=== PATIENT | female | born 1985 | race Caucasian/White ===

== ENCOUNTER → 2016-03-12 | Outpatient (CLI) | payer BC ==
[~2016-03-12] MED LIST: ACET-1256 PO; AMOX875T PO; DICL-201 PO; DIPH25CA65 PO; FEXO1TAB49 PO; FLUT0.15 NAE; GABA-113 PO; IBUP-103 PO; MECL1TAB42 PO; MGRIN; PRENTAB26 PO; SERT50TA PO; VENL1CAP92 PO
--- NOTE | 2016-03-12 12:17 | DIAGNOSTIC IMAGING REPORT ---
CERVICAL SPINE 5 VIEWS HISTORY: Pain. Neuropathy. CERVICALGIA, CERVICOGENIC JORDAN COMPARISON: None. FINDINGS: The cervical spine is visualized from C1 through the superior endplate of T1. There is no fracture. No subluxation. Disc spaces are preserved. Prevertebral soft tissues and the atlantodens interval are intact. IMPRESSION: No fracture or subluxation within the cervical spine. Electronically signed by: Marco A Fernandez M.D. 03/12/2016 12:15 PM
== END | disposition home or self-care (01) ==
LOC: C.RADBC 11:23
PROVIDERS: ATTEND Anesthesiology
DX: M54.2 Cervicalgia (principal); R51 Headache

== ENCOUNTER → 2017-04-08 | Day surgery (SDC) | payer OTHER ==
[2017-03-22 15:02] VITALS: Ht 162.6 cm; Wt 79.5 kg
--- NOTE | 2017-04-07 12:21 | History and Physical: Surg Cnt ---
History & Physical Date Apr 07, 2017. Chief Complaint sinus infections History of Present Illness The patient is a 32 year old female with complaints of recurrent acute sinusitis , headaches Additional History Hepatic Disease: No Endocrine Disorder: No Kidney Disease: No Hypertension: No Heart Disease: No Bleeding Tendencies: No Infectious Diseases: No Allergies Coded Allergies: Oxycodone (Verified Allergy, Unknown, Hives and disorientation, 04/06/17) Clavulanic Acid (Verified Adverse Reaction, Severe, rectal bleeding, ) Uncoded Allergies: CANTELOUPE (Allergy, Severe, ANAPHYLAXIS, 08/01/14) HONEYDEW (Allergy, Severe, ANAPHYLAXIS, 08/01/14) Home Medications Scheduled Cholecalciferol (Vitamin D3), 1 TAB PO QAM Cyanocobalamin (Vitamin B12), 1 TAB PO QAM Gabapentin (Neurontin), 300 MG PO QPM Multivit/Min/Iron/Fol Ac/Pren ( Vitamin), 1 TAB PO QAM Sertraline (Zoloft), 50 MG PO QAM Scheduled PRN Acetaminophen (Tylenol), 1,000 MG PO QD PRN for Headache Diphenhydramine Hcl (Benadryl Allergy), 1 CAP PO DIRECTED PRN for ALLERGIC REACTION Ibuprofen Tab (Advil), 200-600 MG PO DIRECTED PRN for Pain Meclizine Hcl (Meclizine Hcl), 1 TAB PO TID PRN for VERTIGO Physical Examination Skin: warm/dry, no rash Eyes: normal inspection, EOMI, sclerae normal ENT: normal ENT inspection, pharynx normal Head: normocephalic, atraumatic Neck: supple, no adenopathy, trachea midline Respiratory/Chest: lungs clear, normal breath sounds, no respiratory distress Cardiovascular: regular rate, rhythm, no edema, no murmur Abdomen / GI: normal bowel sounds, non tender Back: normal inspection Extremities: normal inspection, normal range of motion Neurologic/Psych: no motor/sensory deficits, alert, normal reflexes, oriented x 3 Diagnosis recurrent acute sinusitis Plan of Treatment endoscopic sinus surgery
[~2017-04-08] VITALS: Ht 162.6 cm; Wt 79.5 kg
[~2017-04-08] MED LIST changes: -AMOX875T PO; +ATROPINE SULFATE 0.1 MG/ML 5ML SYR IV PRN; +CEFAZOLIN 1000MG IV PUSH 5 ML IV SCH; +CHOL1TAB46 PO; +CYAN100020 PO; +DEXAMETHASONE SOD INJ 4 MG/ML VIAL ONE; -DICL-201 PO; +EpINEphrine INJ 1MG/ML AMP 1 MG/ML AMP ONE; +FENTANYL CITRATE INJ 50 MCG/1 ML 2 ML VIAL IV PRN; +FENTANYL CITRATE INJ 50 MCG/1 ML 2 ML VIAL ONE; -FEXO1TAB49 PO; -FLUT0.15 NAE; -GABA-113 PO; +IBUPROFEN 600 MG TAB PO PRN; +KETOROLAC TROMETHAMINE 30 MG/ML VIAL IV. PRN; +LABETALOL HCL IV 5 MG/ML 20ML IV PRN; +LACTATED RINGER'S 1000ML 1,000 ML IV SCH; +LIDO 2%/EPINEPHRINE 1:100000 20 ML VIAL INFIL ONE; +LIDOCAINE 4% MPF SOAK 5 ML = 1 DOSE TOP ONE; +LIDOCAINE HCL 2% 2 ML VIAL (20MG/ML) ONE; -MGRIN; +MIDAZOLAM HCL 1 MG/ML 2ML VIAL ONE; +NRN/300 PO; +ONDANSETRON INJ 2 MG/ML 2 ML VIAL IV PRN; +ONDANSETRON INJ 2 MG/ML 2 ML VIAL ONE; +PROPOFOL IV EMULSION 10 MG/ML 20 ML VIAL IV ONE; +SODIUM CHLORIDE 0.9% 1000ML 1,000 ML IV SCH; +TRAM-10 PO; -VENL1CAP92 PO
--- NOTE | 2017-04-08 07:56 | History & Physical Bridge Note ---
H&P Re-Evaluation Bridge Note: I have examined the patient, reviewed the History & Physical and in the interval since the performance of the History & Physical I have noted the following changes of clinical significance: No changes noted
--- NOTE | 2017-04-08 12:05 | Discharge Instructions-SurgCtr ---
Discharge Instructions Date of Service Apr 08, 2017. Visit Reason for Visit: Rec Acute Sinusitis Discharge Discharge Diagnosis / Problem: same Discharge Goals Goal(s): Improve disease control Medications Stopped Medications Name(s): Has not taken Advil or B12 in past couple days. Has been more than 2 days since last taking. Activity Recommendations Activity Limitations: resume your previous activity Anesthesia . Post Anesthesia Instructions: If you have had General Anesthesia or IV Sedation: * Do not drive today. * Resume driving when surgeon permits. * Do not make important decisions or sign legal documents today. * Call surgeon for: 1. Temperature elevations greater than 101 degrees F. 2. Uncontrollable pain. 3. Excessive bleeding. 4. Persistent nausea and vomiting. 5. Medication intolerance (nausea, vomiting or rash). * For nausea and vomiting use only clear liquids such as: tea, soda, bouillon until nausea subsides, then gradually increase diet as tolerated. * If you have any concerns or questions, call your surgeon's office. If physician is unavailable and it is an emergency, call 911 or go to the nearest emergency room. . Instructions / Follow-Up Instructions / Follow-Up ACTIVITY RECOMMENDATIONS: * Being up and around is good, but no strenuous activity, heavy lifting or physical exertion for one week. * Keep your head elevated 30 degrees when lying down or sleeping. * Do not blow your nose for 48 hours, sniff back instead. * Avoid hot showers. OVER THE COUNTER MEDICATIONS: * You may use Tylenol * Avoid aspirin or aspirin containing products, e.g. as they may increase bleeding. SPECIAL CARE INSTRUCTIONS: * Expect to have bloody drainage from your nose and/or down your throat for one to three days. Change drip pad as needed. * Begin irrigating your nose with saline solution today, at least six to ten times per day and sniff back to help remove old clots or crust. * You may experience nasal and facial congestion, pain and pressure, this is normal. * Please call with any significant and/or progressive pain, redness, swelling around the eyes, visual changes, fever of 101.5 degrees F, active bleeding or any problems or concerns. * If active bleeding occurs, spray the nose three times at one minute intervals with Afrin spray and call or cell phone: . If unable to reach the doctor, go to the nearest Emergency Department. Special Diet: * Avoid extremely hot fluids. FOLLOW UP VISIT: Follow-up Visit with Dr. Torres If not already scheduled, please call to schedule. Diet Recommendations Home Diet: no limitations Pending Studies Studies pending at discharge: no Medical Emergencies . Who to Call and When: Medical Emergencies: If at any time you feel your situation is an emergency, please call 911 immediately. . Non-Emergent Contact Non-Emergency issues call your: Primary Care Provider . . "Provider Documentation" section prepared by Terra Torres. . [place] Drug Monitoring Program Search Results: no issues identified
--- NOTE | 2017-04-08 13:02 | [facility] Post Operative Brief Note ---
Immediate Operative Summary Operative Date Apr 08, 2017. Pre-Operative Diagnosis Recurrent acute sinusitis Post-Operative Diagnosis same Procedure(s) Performed Endoscopic Sinus Surgery With Brain Lab Navigation, right and left frontal sinus, maxillary and total ethmoidectomies Surgeon Dr. Torres Shellfish Checker Surgeon(s) none Estimated Blood Loss 20ml Findings Consistent with Post-Op Diagnosis Specimens none Drains None Anesthesia Type General Complication(s) none Disposition Accompanied Pt To Recovery: yes Disposition: Recovery Room / PACU
--- NOTE | 2017-04-08 13:13 | [facility] Operative Report ---
Operative Report Operative Date Apr 08, 2017. Pre-Operative Diagnosis Recurrent acute sinusitis Post-Operative Diagnosis same Procedure(s) Performed Endoscopic Sinus Surgery With Brain Lab Navigation, right and left frontal sinus, maxillary and total ethmoidectomies Surgeon Dr. Torres Neuroscience Director Na Surgeon(s) none Estimated Blood Loss 20ml Findings adhesions blocking the nasal frontal duct Specimens none Drains None Anesthesia Type General Complication(s) none Disposition yes Recovery Room / PACU Indications 32-year-old lady with recurrent recurrent acute sinusitis with significant headaches with adhesions blocking the sinuses for redo of her sinus surgery from 2015 Description of Procedure The patient was brought to the operating room placed supine position and general anesthesia was induced using LMA. [employer] device was calibrated and used for the entire procedure. She was prepped and draped in the usual sterile manner. The left maxillary sinus was cannulated with the guidewire and dilated using the 6 mm balloon as was the right maxillary sinus. The left nasal frontal duct was cannulated with the guidewire with [employer]Lab computer guidance and dilated using the 6 mm balloon. The guidewire was left in place as a marker for frontal sinusotomy. The shaver was couple with the Brain[facility] device and used to remove the adhesions from the middle turbinate to the lateral wall and the residual anterior and posterior wall of the Agger nasi cell. Widely opening up the nasal frontal duct which was located laterally. Adhesions covering the maxillary ostia and blocking the ethmoids were also removed using the shaver. Attention was turned to the right side were frontal sinusotomy total ethmoidectomy maxillary sinus antrostomy was performed similar manner again removing the adhesions from the middle turbinate laterally and again removing the residual Agger nasi cell and decidual supra-ethmoid or air cells and removing the adhesions blocking the maxillary ostia and the ethmoids. A contours stent was placed in the right nasal frontal duct and to regular propel stents were placed in the middle meatus area. The patient her procedure well was taken recovery area in satisfactory condition. I attest to the content of the Intraoperative Record and any orders documented therein. Any exceptions are noted below.
--- NOTE | 2017-04-08 13:23 | Anesthesia Progress Nt - [facility] ---
Anesthesia Post Op Note Date & Time Apr 08, 2017 at 13:23 Vital Signs Pain Intensity: 0 Vital Signs Past 12 Hours Date Time Temp Pulse Resp B/P (MAP) Pulse Ox O2 Delivery O2 Flow Rate FiO2 04/08/17 13:04 36.6 88 16 130/64 96 Mask 6 04/08/17 10:22 37.1 83 16 106/71 (83) 97 Room Air Notes Mental Status: alert / awake / arousable, participated in evaluation Pt Amnestic to Procedure: Yes Nausea / Vomiting: adequately controlled Pain: adequately controlled Airway Patency, RR, SpO2: stable & adequate BP & HR: stable & adequate Hydration State: stable & adequate Anesthetic Complications: no major complications apparent
[2017-04-08 14:17] VITALS: BP 116/76; PULSE 78; O2SAT 98
== END | disposition home or self-care (01) ==
LOC: X.SURG 10:07
PROVIDERS: ATTEND Otolaryngology
DX: J01.90 Acute sinusitis, unspecified (principal); Z79.899 Other long term (current) drug therapy

== ENCOUNTER 2018-10-15 16:34 | Observation (INO) ==
[~2018-10-15 16:34] MED LIST changes: -ACET-1256 PO; -ATROPINE SULFATE 0.1 MG/ML 5ML SYR IV PRN; -CEFAZOLIN 1000MG IV PUSH 5 ML IV SCH; -CHOL1TAB46 PO; -CYAN100020 PO; -DEXAMETHASONE SOD INJ 4 MG/ML VIAL ONE; -DIPH25CA65 PO; -EpINEphrine INJ 1MG/ML AMP 1 MG/ML AMP ONE; -FENTANYL CITRATE INJ 50 MCG/1 ML 2 ML VIAL IV PRN; -FENTANYL CITRATE INJ 50 MCG/1 ML 2 ML VIAL ONE; -IBUP-103 PO; -IBUPROFEN 600 MG TAB PO PRN; -KETOROLAC TROMETHAMINE 30 MG/ML VIAL IV. PRN; -LABETALOL HCL IV 5 MG/ML 20ML IV PRN; +LACTATED RINGER'S 1,000 ML IV SCH; -LACTATED RINGER'S 1000ML 1,000 ML IV SCH; -LIDO 2%/EPINEPHRINE 1:100000 20 ML VIAL INFIL ONE; -LIDOCAINE 4% MPF SOAK 5 ML = 1 DOSE TOP ONE; -LIDOCAINE HCL 2% 2 ML VIAL (20MG/ML) ONE; -MECL1TAB42 PO; -MIDAZOLAM HCL 1 MG/ML 2ML VIAL ONE; -NRN/300 PO; -ONDANSETRON INJ 2 MG/ML 2 ML VIAL IV PRN; -ONDANSETRON INJ 2 MG/ML 2 ML VIAL ONE; -PRENTAB26 PO; -PROPOFOL IV EMULSION 10 MG/ML 20 ML VIAL IV ONE; -SERT50TA PO; -SODIUM CHLORIDE 0.9% 1000ML 1,000 ML IV SCH; -TRAM-10 PO
[2018-10-15] MEDS ORDERED: SODIUM CHLORIDE 0.9% 1000ML 2,000 ML IV ONE (16:53)
[2018-10-15 17:30] LABS: Basophils # (auto) 0.02 K/uL (0-0.2); Basophils % (auto) 0.2 %; Eosinophils # (auto) 0.01 K/uL (0-0.5); Eosinophils % (auto) 0.1 %; Hematocrit (blood only) 33.7 % (37-47); Hemoglobin 11.7 g/dL (12.0-16.0); Immature Granulocytes # (auto) 0.03 K/uL (0.00-0.02); Immature Granulocytes % (auto) 0.3 %; Lymphocytes # (auto) 1.26 K/uL (1.2-3.4); Lymphocytes % (auto) 10.5 %; Mean Corpuscular Hgb Conc 34.7 g/dL (32-36); Mean Corpuscular Volume 89.9 fL (80-100); Mean Platelet Volume 8.7 fL (7.4-10.4); Monocytes # (auto) 1.01 K/uL (0.11-0.59); Monocytes % (auto) 8.4 %; Neutrophils # (auto) 9.65 K/uL (1.4-6.5); Neutrophils % (auto) 80.5 %; Platelet Count 236 K/uL (130-400); RDW Coefficient of Variation 14.2 % (11.5-14.5); RDW Standard Deviation 46.8 fL (36.4-46.3); Red Blood Count 3.75 M/uL (4.2-5.4); White Blood Count 11.98 K/uL (4.8-10.8)
--- NOTE | 2018-10-15 17:31 | XRay Report ---
SINGLE VIEW CHEST CLINICAL HISTORY: Sepsis. FINDINGS: An AP, portable, upright chest radiograph is compared to study dated 05/15/2015. The examinat ion is degraded by portable technique and patient rotation. The cardiomediastinal silhouette is unr emarkable. There is mild bibasilar atelectasis. The lungs and pleural spaces are otherwise clear. No pneumothorax is seen. The bony thorax is grossly intact. IMPRESSION: No active disease in the chest. Electronically signed by: Yovany Antony M.D. 10/15/2018 5:29 PM
[2018-10-15 17:41] LABS: Partial Thromboplastin Ratio 0.9; Partial Thromboplastin Time 25.1 Seconds (21.0-31.0); Prothrombin Time 10.5 Seconds (9.0-12.0)
[2018-10-15 17:51] LABS: Albumin Globulin Ratio 1.2 (0.9-2); Albumin Level 3.9 gm/dl (3.4-5.0); Bilirubin,Total 1.6 mg/dl (0.2-1); Calcium 8.5 mg/dl (8.5-10.1); Creatinine Clr Calc Pharmacy 124.4 ml/min; Est GFR (African American) 133.3; Globulin 3.2 gm/dl (2.5-4.0); Potassium 3.6 mmol/L (3.5-5.1); Total Protein 7.1 gm/dl (6.4-8.2)
[2018-10-15] MEDS ORDERED: KETOROLAC TROMETHAMINE 15 MG/ML VIAL IV ONE (18:03)
--- NOTE | 2018-10-15 18:41 | Ultrasound Report ---
ULTRASOUND OF THE PELVIS CLINICAL HISTORY: Right pelvic pain. COMPARISON STUDY: Pelvic ultrasound dated 10/14/2018. Pelvic CT dated 10/15/2018. TECHNIQUE: Real-time, grayscale, and color flow sonography of the pelvis is performed both transabdom inally and endovaginally. Images are reviewed in the transverse and longitudinal planes. FINDINGS: Uterus: The uterus is normal in size and echotexture, measuring 9.3 x 3.5 x 5.1 cm. Nabothian cysts a re seen in the cervix. Endometrium: The endometrium is normal in appearance, and the endometrial stripe is normal in thickne ss measuring up to 0.6 cm. Ovaries: There is unchanged appearance of the right ovary from yesterday. The right ovary measures 5. 4 x 4.1 x 5.2 cm. A homogeneously hyperechoic lesion within the right ovary measures 4.5 cm. No inter nal flow shown within this lesion on color imaging. The left ovary measures 3.3 x 2.1 x 2.7 cm. Small follicles are noted in the left ovary. Normal Doppler waveforms are shown within both ovaries. Pelvis: There is a small volume of free fluid in the cul-de-sac. No concerning adnexal lesion is seen . IMPRESSION: 1. There is unchanged appearance of the right ovary as compared to yesterday. 2. A 4.5 cm homogeneously hyperechoic lesion within the right ovary shows no internal flow on color i maging. When correlated with yesterday's CT scan, the top differential considerations include a hemor rhagic cyst versus endometrioma. Follow-up ultrasound in 2-3 menstrual cycles is recommended to docum ent resolution. 3. A small volume of free fluid is again seen in the cul-de-sac. Electronically signed by: Yovany Antony M.D. 10/15/2018 6:40 PM
[2018-10-15 18:55] LABS: Pregnancy Test, Urine Negative (Negative)
[2018-10-15 18:58] LABS: Appearance Urine Clear (Clear); Bilirubin Urine Negative (Negative); Blood Urine 3+ (Negative); Color Urine Yellow; Glucose Urine UA Negative (Negative); Ketones Urine Negative (Negative); Leukocyte Esterase Urine Negative (Negative); Nitrite Urine Negative (Negative); Protein Urine Negative (Negative); Specific Gravity Urine 1.005 (1.000-1.030); Urobilinogen Urine Negative (Negative); pH Urine 6.5 (4.5-7.5)
[2018-10-15 19:08] LABS: Bacteria Urine Automated Negative (Negative); Cast Urine Automated 0 /lpf (0-5); RBC Urine Automated 0-4 /hpf (0-4); WBC Urine Automated 0 /hpf (0-5)
[2018-10-15] MEDS ORDERED: ONDANSETRON INJ 2 MG/ML 2 ML VIAL IV STA (19:22)
[2018-10-15] MEDS ORDERED: HYDROmorphone INJ 0.5 MG/0.5 ML SYR IV STA (19:22)
[2018-10-15] MEDS ORDERED: MIDAZOLAM HCL 1 MG/ML 2ML VIAL ONE (21:03)
[2018-10-15] MEDS ORDERED: fentaNYL citrate 100 MCG/2 ML VIAL ONE ×2 (21:04→23:25)
--- NOTE | 2018-10-15 21:09 | Consultation ---
Date of Consultation October 15, 2018 Assessment & Plan (1) Fever: (2) Right ovarian cyst: (3) Pelvic pain: Discussed with patient and partner my concerns re: her above problems. Cyst is 4cm and given tenderness and fever, I am concerned about possible torsion. I recommend laparoscopic evaluation with possible right ovarian cystectomy or right oophrectomy. She is aware that this surgery will reduce her fertility. Still with the fever, with no other source, makes me concerned for ongoing intraabdominal process. She is in agreement. Risks, alternatives, complications reviewed with the patient included but not limited to bleeding, infection, anesthesia, injury to surrounding structures to include bowel, bladder, vessels, nerves, ureters, deep venous thrombosis, pulmonary embolism, delayed complications, repeat hospitalizations. The patient desires to proceed and the consent form is signed. She is aware of her preop, postop instructions and course. I would like to observe her longer postoperatively due to her fever and will keep her in observation after surgery. History of Present Illness Requesting Physician: Dr. Rios Reason for Consultation: pelvic pain, complex ovarian cyst, fever History of Present Illness 33yo G0 with cc of pelvic pain, right ovarian complex cyst and fever presents to Er and I am asked to see her on consult from Dr. Rios. Patient states she started her period yesterday. She had her usual cramping that escalated to more severe pain by 5pm last pm. She notes then was 10/10 pain by 7pm. It was severe and sharp in right lower quadrant and radiated to her rectum and umbilicus. She notes h/o pain with periods but this was different. She had nausea with this but no vomiting. She found her pain to be worse with sitting up. She came to ER last pm. She was evaluated and found to have about 4cm cyst of right ovary that was thought to be dermoid by us and hemorrhagic cyst by CT. Her wbc was 16,000. Her test was negative. She was given pain medication and sent home. She has sensitivity to narcotics and so was using diclofenac today and called me about 2pm when her pain was not getting better and she had a fever to 101F. She had bowel movement this am. She is voiding but feels that she doesn't empty all the way due to pain. She is trying to conceive and notes history of PCOS but also notes regular periods even off ocps. Her periods have been q28d and more recently q28-32 days x 3-5 days. 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 Family history: no family history of breast colon or ovary cancer her mother did have a history of a benign breast biopsy Allergies Allergy/AdvReac Type Severity Reaction Status Date / Time latex Allergy Unknown Unknown Verified 10/15/18 17:57 oxycodone Allergy Unknown Hives and Verified 10/14/18 22:15 disorientation CANTELOUPE Allergy Severe ANAPHYLAXIS Uncoded 10/14/18 22:15 HONEYDEW Allergy Severe ANAPHYLAXIS Uncoded 10/14/18 22:15 Home Medications Home Medications Medication Instructions Recorded Confirmed Type acetaminophen 500 mg tablet 1,000 mg PO DIRECTED PRN tab 12/17/17 10/15/18 History cyanocobalamin (vit B-12) 1,000 1,000 mcg PO DAILY 12/17/17 10/15/18 History mcg tablet diphenhydramine 25 mg tablet 25 - 50 mg PO DIRECTED PRN 12/17/17 10/15/18 History gabapentin 300 mg capsule 300 mg PO QAM cap 12/17/17 10/15/18 History ibuprofen 200 mg tablet 400 - 600 mg PO Q6H PRN 12/17/17 10/15/18 History meclizine 25 mg tablet 25 - 50 mg PO TID PRN 12/17/17 10/15/18 History sertraline 50 mg tablet 50 mg PO QAM 12/17/17 10/15/18 History 1 tab PO DAILY 09/22/18 10/15/18 History vitamin,calcium,hfqyucxu-tugg-[id number] acid tablet cholecalciferol (vitamin D3) 1,000 unit PO DAILY 10/14/18 10/15/18 History [Vitamin D3] gabapentin 600 mg PO HS 10/14/18 10/15/18 History magnesium 250 mg PO BID 10/14/18 10/15/18 History ondansetron HCl [Zofran] 4 - 8 mg PO TID PRN 10/14/18 10/15/18 History diclofenac sodium 75 mg PO BID PRN #30 tab 10/15/18 10/15/18 Rx ondansetron 4 mg PO Q6H PRN #12 tab 10/15/18 10/15/18 Rx Patient History Medical History Traumatic brain injury (Chronic) Depressive disorder (Chronic) Right bundle branch block (RBBB) (Chronic) Polycystic ovarian syndrome (Chronic) Chronic migraine (Chronic) Migraines (Acute) Traumatic brain injury (Acute) Surgical History Hx of nasal septoplasty (Acute) Social History Preferred Language: Fijian Visual Impairment: No Limitations Hearing Ability: Normal Beliefs That Will Affect Care: None marital status: Current Living Situation: Spouse current occupational status: unemployed Feels Safe at Home: Yes Smoking Status: Never smoker Hx Alcohol Use: Yes (rarely) Alcohol type: wine Hx Substance Use: No Review of Systems Review of Systems: All systems reviewed & are unremarkable except as noted in HPI & below h/o RBBB that led to fall with traumatic brain injury Physical Exam Constitutional: WD/WN, vitals as above Gastrointestinal (Abdomen): Inspection/Auscultation: abdomen normal to inspection; no abdominal surgical incision Percussion/Palpation: + abdomen tender, + guarding and abdomen soft; no hepatosplenomegaly Musculoskeletal: no edema, nt calves Neurologic: grossly normal Psychiatric: A+Ox3, euthymic affect Genitourinary: no CVA tenderness Results & Data Vital Signs (Past 12 Hours) Vital Signs Temp Pulse Pulse Resp BP BP Pulse Ox 10/15/18 20:30 80 20 108/64 96 10/15/18 20:00 91 H 20 96 10/15/18 19:00 95 H 16 119/77 98 10/15/18 16:35 100.8 F H 113 H 16 104/68 99 PG Care Time/CCT Total # of Minutes Spent Total Time Spent with Patient: Total time spent is greater than 50% in coordination of care (as documented) at patient's floor/unit and/or counseling patient:
[2018-10-15] MEDS ORDERED: SCOPOLAMINE 1.5 MG TDSY ONE (21:10)
[2018-10-15] MEDS ORDERED: LIDOCAINE HCL 2% 2 ML VIAL/AMP(20MG/ML) INFIL ONE (21:12)
[2018-10-15] MEDS ORDERED: SUCCINYLCHOLINE CHLORIDE 20 MG/ML 10 ML VIAL ONE (21:12)
[2018-10-15] MEDS ORDERED: ONDANSETRON INJ 2 MG/ML 2 ML VIAL ONE (21:12)
[2018-10-15] MEDS ORDERED: DEXAMETHASONE SOD INJ 4 MG/ML VIAL ONE (21:12)
[2018-10-15] MEDS ORDERED: PROPOFOL IV EMULSION 10 MG/ML 20 ML VIAL IV ONE (21:12)
--- NOTE | 2018-10-15 21:23 | Anesthesiology Consultation ---
Date of Service October 15, 2018 Assessment & Plan (1) Encounter for pre-operative examination: Chart Review Chart Review: Acceptable Risk for Surgery and Patient NOT seen in Pre Admission Testing Consults Requested none History Surgery Operation Date: 10/15/18 21:30 Proposed Procedures p Laparoscopic Operative - Stefanie Power MD, FACOG s Oophorectomy(Right) - Stefanie Power MD, FACOG Height/Weight Height: 5 ft 4 in Weight: 81 kg Allergies Allergy/AdvReac Type Severity Reaction Status Date / Time latex Allergy Unknown Unknown Verified 10/15/18 17:57 oxycodone Allergy Unknown Hives and Verified 10/14/18 22:15 disorientation CANTELOUPE Allergy Severe ANAPHYLAXIS Uncoded 10/14/18 22:15 HONEYDEW Allergy Severe ANAPHYLAXIS Uncoded 10/14/18 22:15 Medications Home Medications Medication Instructions Recorded Confirmed Last Taken acetaminophen 500 mg tablet 1,000 mg PO DIRECTED PRN tab 12/17/17 10/15/18 Unknown cyanocobalamin (vit B-12) 1,000 1,000 mcg PO DAILY 12/17/17 10/15/18 Unknown mcg tablet diphenhydramine 25 mg tablet 25 - 50 mg PO DIRECTED PRN 12/17/17 10/15/18 Unknown gabapentin 300 mg capsule 300 mg PO QAM cap 12/17/17 10/15/18 Unknown ibuprofen 200 mg tablet 400 - 600 mg PO Q6H PRN 12/17/17 10/15/18 Unknown meclizine 25 mg tablet 25 - 50 mg PO TID PRN 12/17/17 10/15/18 Unknown sertraline 50 mg tablet 50 mg PO QAM 12/17/17 10/15/18 Unknown 1 tab PO DAILY 09/22/18 10/15/18 Unknown vitamin,calcium,wwjjvjvh-opkz-qmrbf acid tablet cholecalciferol (vitamin D3) 1,000 unit PO DAILY 10/14/18 10/15/18 Unknown [Vitamin D3] gabapentin 600 mg PO HS 10/14/18 10/15/18 Unknown magnesium 250 mg PO BID 10/14/18 10/15/18 Unknown ondansetron HCl [Zofran] 4 - 8 mg PO TID PRN 10/14/18 10/15/18 Unknown diclofenac sodium 75 mg PO BID PRN #30 tab 10/15/18 10/15/18 Unknown ondansetron 4 mg PO Q6H PRN #12 tab 10/15/18 10/15/18 Unknown NPO Date Last Intake of Fluids: 10/15/18 Time Last Intake of Fluids: 15:30 Last Intake of Fluids Comment: water Date Last Intake of Solids: 10/15/18 Time Last Intake of Solids: 12:00 Last Intake of Solids Comment: melody Past Medical History Medical History Traumatic brain injury (Chronic) Depressive disorder (Chronic) Right bundle branch block (RBBB) (Chronic) Polycystic ovarian syndrome (Chronic) Chronic migraine (Chronic) Migraines (Acute) Traumatic brain injury (Acute) Past Surgical History Surgical History Hx of nasal septoplasty (Acute) Social History Smoking Status: Never smoker Hx Alcohol Use: Yes (rarely) Alcohol type: wine alcohol intake frequency: holidays/special occasions only Hx Substance Use: No Physical Exam Vital Signs Last Vital Signs Temp 38.2 C H 10/15/18 16:35 Pulse 80 10/15/18 20:30 Resp 20 10/15/18 20:30 BP 108/64 10/15/18 20:30 Pulse Ox 96 10/15/18 20:30 Testing Laboratory Results 10/15/18 17:21 10/15/18 17:21 PT 10.5 Seconds (9.0-12.0) 10/15/18 17:21 INR 1.0 (0.9-1.1) 10/15/18 17:21 APTT 25.1 Seconds (21.0-31.0) 10/15/18 17:21 Urine Color Yellow 10/15/18 18:40 Urine Appearance Clear (Clear) 10/15/18 18:40 Urine pH 6.5 (4.5-7.5) 10/15/18 18:40 Ur Specific [place] 1.005 (1.000-1.030) 10/15/18 18:40 Urine Protein Negative (Negative) 10/15/18 18:40 Urine Glucose (UA) Negative (Negative) 10/15/18 18:40 Urine Ketones Negative (Negative) 10/15/18 18:40 Urine Nitrite Negative (Negative) 10/15/18 18:40 Ur Leukocyte Esterase Negative (Negative) 10/15/18 18:40 Urine WBC (Auto) 0 /hpf (0-5) 10/15/18 18:40 Urine RBC (Auto) 0-4 /hpf (0-4) 10/15/18 18:40 U Hyaline Cast (Auto) 0 /lpf (0-5) 10/15/18 18:40 U Epithel Cells (Auto) 5-10 /lpf (0-5) H 10/15/18 18:40 Urine Bacteria (Auto) Negative (Negative) 10/15/18 18:40 Urine Test Negative (Negative) 10/15/18 18:40 10/15/18 18:40 Urine Test Negative
[2018-10-15] MEDS ORDERED: PHENYLEPHRINE 100MCG/ML 5ML SYR IV PRN (21:28)
[2018-10-15] MEDS ORDERED: ONDANSETRON INJ 2 MG/ML 2 ML VIAL IV PRN ×2 (21:28→23:46)
[2018-10-15] MEDS ORDERED: PROMETHAZINE HCL 12.5 MG in SODIUM CHLORIDE 0.9% 50 ML IV PRN (21:28)
[2018-10-15] MEDS ORDERED: HYDROmorphone INJ 1 MG/ML SYRINGE IV PRN (21:28)
[2018-10-15] MEDS ORDERED: LABETALOL HCL IV 5 MG/ML 20ML IV PRN (21:28)
[2018-10-15] MEDS ORDERED: MEPERIDINE HCL 25 MG/ML CARP IV PRN (21:28)
[2018-10-15] MEDS ORDERED: ePHEDrine sulfate 50 MG/ML AMP IV PRN (21:28)
[2018-10-15] MEDS ORDERED: fentaNYL citrate 100 MCG/2 ML VIAL IV PRN (21:28)
[2018-10-15] MEDS ORDERED: BUPIVACAINE 0.5 % 5 MG/1 ML MPF 30ML VIAL ONE (21:28)
[2018-10-15] MEDS ORDERED: ATROPINE SULFATE 0.1 MG/ML 10ML SYR IV PRN (21:28)
[2018-10-15] MEDS ORDERED: METHYLENE BLUE 0.5% 10 ML VIAL ONE (23:04)
[2018-10-15] MEDS ORDERED: ePHEDrine sulfate 50 MG/ML SYR ONE (23:04)
[2018-10-15] MEDS ORDERED: NEOSTIGMINE METHYLSULFATE 5 MG/5 ML SYR ONE (23:04)
[2018-10-15] MEDS ORDERED: GLYCOPYRROLATE 0.2 MG/ML VIAL ONE (23:04)
[2018-10-15] MEDS ORDERED: ROCURONIUM BROMIDE 10 MG/ML 5 ML VIAL ONE (23:05)
[2018-10-15] MEDS ORDERED: KETOROLAC 30 MG/ML VIAL ONE (23:13)
--- NOTE | 2018-10-15 23:22 | Post Operative Brief Note ---
[facility] Immediate Post Op with CF Date of Surgery October 15, 2018 Pre & Post Diagnosis Operation Date: 10/15/18 21:30 Pre-Op Diagnosis: FEVER, PELVIC PAIN, OVARIAN CYST Post-Op Diagnosis: FEVER, PELVIC PAIN, OVARIAN CYST Procedure Operation Date: 10/15/18 21:30 Actual Procedures Operative Laparoscopy, Right Ovarian Cystectomy(Right), Chromotubation - Stefanie Power MD, FACOG Surgeon Stefanie Power MD, FACOG Mold Maker RN Estimated Blood Loss 2 Findings Consistent with Post-Op Diagnosis (right ovary adhesed to right sidewall with endometrioma actively draining. opening on posterior edge of ovary with extruding tissue. evidence of endometriosis in culdesac. nl liver ege. normal uterus. normal left ovary. bilateral normal tubes. tubal patency confirmed. uterus normal size. ) Fluids 1000 Specimens Specimen Description: A. Right Ovarian Cyst Wall Endometrioma Anesthesia Type General Complications none Disposition Accompanied Patient To Recovery: No Disposition: Recovery Room
--- NOTE | 2018-10-15 23:44 | Emergency Department Note ---
Entered by Bina Ramos acting as a scribe for Gm Rios DO History of Present Illness General Chief complaint: Pelvic Pain Stated complaint: FEVER, PELVIC PAIN, OVARIAN CYST Source: patient Limitations: no limitations History of Present Illness Onset (ago): day(s) 1 Location: abdomen (RLQ) Radiation: other (rectum and umbilical region) Pain Consistency: + constant Maximum Pain Intensity: 8 Quality: + other (pain) Relieved By: + none Associated symptoms: + denies other symptoms (vomiting, vaginal discharge, cough, and congestion.), + nausea/vomiting (complains of nausea, denies vomiting) and + other (abnormal BM) The patient is a 33 year old female with a PMHx of ovarian cyst, polycystic ovarian syndrome, and migraines who presents to the Emergency Room with complaints of constant sudden-onset right lower quadrant abdominal pain that began yesterday at 17:00. She reports that she was in the ED yesterday evening for the same symptoms, but none of the medications provided any relief. She note s that the pain radiates to her rectum and umbilical region. The patient complains that she developed a fever this morning. She complains of nausea. The patient notes that she had a BM this morning, but it was abnormal. She reports pressure in her abdomen with urination. The patient denies any vomiting, vaginal discharge, cough, and congestion. She notes that her LKNP began yesterday. The patient notes that she took Tylenol at 10:00 this morning, but it provided no relief. Home Medications Home Medications Medication Instructions Recorded Confirmed Type acetaminophen 500 mg tablet 1,000 mg PO DIRECTED PRN tab 12/17/17 10/15/18 History cyanocobalamin (vit B-12) 1,000 1,000 mcg PO DAILY 12/17/17 10/15/18 History mcg tablet diphenhydramine 25 mg tablet 25 - 50 mg PO DIRECTED PRN 12/17/17 10/15/18 History gabapentin 300 mg capsule 300 mg PO QAM cap 12/17/17 10/15/18 History ibuprofen 200 mg tablet 400 - 600 mg PO Q6H PRN 12/17/17 10/15/18 History meclizine 25 mg tablet 25 - 50 mg PO TID PRN 12/17/17 10/15/18 History sertraline 50 mg tablet 50 mg PO QAM 12/17/17 10/15/18 History 1 tab PO DAILY 09/22/18 10/15/18 History vitamin,calcium,xuospnbr-iqdm-ivuel acid tablet cholecalciferol (vitamin D3) 1,000 unit PO DAILY 10/14/18 10/15/18 History [Vitamin D3] gabapentin 600 mg PO HS 10/14/18 10/15/18 History magnesium 250 mg PO BID 10/14/18 10/15/18 History ondansetron HCl [Zofran] 4 - 8 mg PO TID PRN 10/14/18 10/15/18 History diclofenac sodium 75 mg PO BID PRN #30 tab 10/15/18 10/15/18 Rx ondansetron 4 mg PO Q6H PRN #12 tab 10/15/18 10/15/18 Rx Allergies Allergy/AdvReac Type Severity Reaction Status Date / Time latex Allergy Unknown Unknown Verified 10/15/18 17:57 oxycodone Allergy Unknown Hives and Verified 10/14/18 22:15 disorientation CANTELOUPE Allergy Severe ANAPHYLAXIS Uncoded 10/14/18 22:15 HONEYDEW Allergy Severe ANAPHYLAXIS Uncoded 10/14/18 22:15 Past Med/Surg History Medical History Traumatic brain injury (Chronic) Depressive disorder (Chronic) Right bundle branch block (RBBB) (Chronic) Polycystic ovarian syndrome (Chronic) Chronic migraine (Chronic) Migraines (Acute) Traumatic brain injury (Acute) Surgical History Hx of nasal septoplasty (Acute) Social History Preferred Language: German Visual Impairment: No Limitations Hearing Ability: Normal Beliefs That Will Affect Care: None marital status: Current Living Situation: Spouse current occupational status: unemployed Feels Safe at Home: Yes Smoking Status: Never smoker Hx Alcohol Use: Yes (rarely) Alcohol type: wine Hx Substance Use: No Review of Systems See HPI for pertinent positives & negatives. and A total of 10 systems reviewed and were otherwise negative Physical Exam Vital Signs Vital Signs - 24 hr 10/15/18 16:35 10/15/18 19:00 10/15/18 20:00 Temperature 38.2 C H Temperature Source Oral Sepsis Recent Fever Within 48 Hours No Sepsis Action Taken by Nursing No Action Required Pulse Rate 113 H Pulse Rate [Left Finger] 95 H 91 H Pulse Rhythm [Left Finger] Regular Regular Pulse Strength [Left Finger] Normal Normal Respiratory Rate 16 16 20 Respiratory Effort / Characteristics Non-Labored Non-Labored Spontaneous Non-Labored Spontaneous Respiratory Depth Normal Normal Normal Respiratory Pattern Regular Regular Regular Blood Pressure 104/68 Blood Pressure [Right Arm] 119/77 Blood Pressure Mean 80 Blood Pressure Mean [Right Arm] 91 Blood Pressure Position Sitting Blood Pressure Position [Right Arm] Lying Pulse Oximetry 99 98 96 Oxygen Delivery Method Room Air Room Air Room Air 10/15/18 20:30 10/15/18 21:20 Temperature 37.4 C Temperature Source Oral Sepsis Recent Fever Within 48 Hours Sepsis Action Taken by Nursing Pulse Rate Pulse Rate [Left Finger] 80 80 Pulse Rhythm [Left Finger] Regular Regular Pulse Strength [Left Finger] Normal Normal Respiratory Rate 20 20 Respiratory Effort / Characteristics Non-Labored Spontaneous Non-Labored Spontaneous Respiratory Depth Normal Normal Respiratory Pattern Regular Regular Blood Pressure Blood Pressure [Right Arm] 108/64 120/64 Blood Pressure Mean Blood Pressure Mean [Right Arm] 78 82 Blood Pressure Position Blood Pressure Position [Right Arm] Lying Lying Pulse Oximetry 96 96 Oxygen Delivery Method Room Air Room Air GENERAL: alert, slightly ill appearing, well nourished, mild distress, non- toxic, sitting up in bed EYE EXAM: normal conjunctiva OROPHARYNX: no exudate, no erythema, lips, buccal mucosa, and tongue normal and mucous membranes are moist NECK: supple, no nuchal rigidity, no adenopathy, non-tender LUNGS: Clear to auscultation. Normal chest wall mechanics HEART: no murmurs, S1 normal and S2 normal ABDOMEN: abdomen soft, normo-active bowel sounds, no masses, no rebound or guarding. Diffuse tenderness to palpation, worse in RLQ. BACK: Back is symmetrical on inspection and there is no deformity, no midline tenderness, no CVA tenderness. SKIN: no rashes and no bruising UPPER EXTREMITIES: upper extremities are grossly normal. LOWER EXTREMITIES: No pitting edema. NEURO EXAM: Normal sensorium, cranial nerves II-XII grossly intact, normal speech, no gross weakness of arms, no gross weakness of legs. Course ED COURSE: Vital signs were reviewed and showed the patient was febrile and tachycardic The patients medical record was reviewed The above diagnostic studies were performed and reviewed. ED treatments and interventions as stated above. 1645: The patient was evaluated in room B05. A complete history and physical examination was performed. I reviewed the patients EMR, and she had a US of the appendix, a US of the pelvis, and a CT of the abdomen and pelvis yesterday. The US of appendix on was undiagnosed. Her US of the pelvis showed a 4.5 cm homogeneously hyperechoic structure in the right ovary. The CT of the abdomen and pelvis showed a ruptured hemorrhagic cyst. Her appendix was normal. 1803: I reevaluated the patient. 1913: I spoke with Dr. Stefanie Power, [facility], about the patients case. She will further evaluate the patient. 1917: Upon reevaluation, the patient is stable. I discussed my findings with the patient and she understands and agrees with the treatment plan. Based on the patients age, coexisting illnesses, exam and lab findings the decision to treat as an inpatient was made. The patient remained stable while under my care. The patient will be evaluated for further management. Consultations Consultation #1: I spoke with Dr. Stefanie Power, [facility], about the patients case. She will further evaluate the patient. Time: 19:14 Administered Medications Discontinued Medications Bupivacaine HCl (Marcaine 0.5% Mpf) Confirm Administered Dose 30 ml .ROUTE .STK- MED ONE Stop: 10/15/18 21:29 Last Admin: 10/15/18 23:39 Dose: 10 ml Documented by: [id number] Hydromorphone HCl (Dilaudid) 0.5 mg IV NOW STA Stop: 10/15/18 19:23 Last Admin: 10/15/18 20:00 Dose: 0.5 mg Documented by: [id number] Sodium Chloride (Nss 1000ml) 2,000 mls @ 999 mls/hr IV .Q2H1M ONE Stop: 10/15/18 18:53 Last Infusion: 10/15/18 18:35 Dose: 0 mls/hr Documented by: [id number] Admin: 10/15/18 17:16 Dose: 999 mls/hr Documented by: [id number] Lactated Ringer's (Lr) 1,000 mls @ 125 mls/hr IV .Q8H MADONNA Stop: 10/15/18 13:59 Last Admin: 10/15/18 21:25 Dose: 125 mls/hr Documented by: [id number] Ketorolac Tromethamine (Toradol) 10 mg IV NOW ONE Stop: 10/15/18 18:04 Last Admin: 10/15/18 18:36 Dose: 10 mg Documented by: [id number] Ondansetron HCl (Zofran) 4 mg IV NOW STA Stop: 10/15/18 19:23 Last Admin: 10/15/18 20:00 Dose: 4 mg Documented by: [id number] Medical Decision Making Differential Diagnosis Etiologies such as sepsis, UTI, pneumonia, bacteremia, metabolic process, electrolyte abnormalities, cardiac sources, intracerebral event, intra-abdominal process, toxicological process, neurologic process, as well as others were entertained. Medical Records Attestation: I reviewed the patient's medical records. Home Medications Current Medication List: was personally reviewed by me Laboratory Data Attestation: I reviewed the patient's lab results. Result diagrams: 10/15/18 17:21 10/15/18 17:21 Lab Results 10/15/18 10/15/18 10/15/18 Range/Units 17:11 17:21 17:21 WBC 11.98 H (4.8-10.8) K/uL RBC 3.75 L (4.2-5.4) M/uL Hgb 11.7 L (12.0-16.0) g/dL Hct 33.7 L (37-47) % MCV 89.9 (80-100) fL MCH 31.2 (25-34) pg MCHC 34.7 (32-36) g/dL RDW Std Deviation 46.8 H (36.4-46.3) fL RDW Coeff of Jony 14.2 (11.5-14.5) % Plt Count 236 (130-400) K/uL MPV 8.7 (7.4-10.4) fL Immature Gran % (Auto) 0.3 % Neut % (Auto) 80.5 % Lymph % (Auto) 10.5 % Morgan % (Auto) 8.4 % Eos % (Auto) 0.1 % Baso % (Auto) 0.2 % Immature Gran # (Auto) 0.03 H (0.00-0.02) K/uL Neut # (Auto) 9.65 H (1.4-6.5) K/uL Lymph # (Auto) 1.26 (1.2-3.4) K/uL Morgan # (Auto) 1.01 H (0.11-0.59) K/uL Eos # (Auto) 0.01 (0-0.5) K/uL Baso # (Auto) 0.02 (0-0.2) K/uL PT 10.5 (9.0-12.0) Seconds INR 1.0 (0.9-1.1) APTT 25.1 (21.0-31.0) Seconds PTT Ratio 0.9 Sodium (136-145) mmol/L Potassium (3.5-5.1) mmol/L Chloride (98-107) mmol/L Carbon Dioxide (21-32) mmol/L Anion Gap (3-11) BUN (7-18) mg/dl Creatinine (0.6-1.2) mg/dl Est Cr Clr Drug Dosing ml/min Est GFR ( Amer) Est GFR (Non-Af Amer) BUN/Creatinine Ratio (10-20) Glucose (70-99) mg/dl Lactate 1.2 (0.4-2.0) mmol/L Calcium (8.5-10.1) mg/dl Total Bilirubin (0.2-1) mg/dl AST (15-37) U/L ALT (12-78) U/L Alkaline Phosphatase (45-117) U/L Total Protein (6.4-8.2) gm/dl Albumin (3.4-5.0) gm/dl Globulin (2.5-4.0) gm/dl Albumin/Globulin Ratio (0.9-2) Urine Color Urine Appearance (Clear) Urine pH (4.5-7.5) Ur Specific [place] (1.000-1.030) Urine Protein (Negative) Urine Glucose (UA) (Negative) Urine Ketones (Negative) Urine Blood (Negative) Urine Nitrite (Negative) Urine Bilirubin (Negative) Urine Urobilinogen (Negative) Ur Leukocyte Esterase (Negative) Urine WBC (Auto) (0-5) /hpf Urine RBC (Auto) (0-4) /hpf U Hyaline Cast (Auto) (0-5) /lpf U Epithel Cells (Auto) (0-5) /lpf Urine Bacteria (Auto) (Negative) Urine Test (Negative) Blood Type Antibody Screen 10/15/18 10/15/18 10/15/18 Range/Units 17:21 18:40 18:40 WBC (4.8-10.8) K/uL RBC (4.2-5.4) M/uL Hgb (12.0-16.0) g/dL Hct (37-47) % MCV (80-100) fL MCH (25-34) pg MCHC (32-36) g/dL RDW Std Deviation (36.4-46.3) fL RDW Coeff of Jony (11.5-14.5) % Plt Count (130-400) K/uL MPV (7.4-10.4) fL Immature Gran % (Auto) % Neut % (Auto) % Lymph % (Auto) % Morgan % (Auto) % Eos % (Auto) % Baso % (Auto) % Immature Gran # (Auto) (0.00-0.02) K/uL Neut # (Auto) (1.4-6.5) K/uL Lymph # (Auto) (1.2-3.4) K/uL Morgan # (Auto) (0.11-0.59) K/uL Eos # (Auto) (0-0.5) K/uL Baso # (Auto) (0-0.2) K/uL PT (9.0-12.0) Seconds INR (0.9-1.1) APTT (21.0-31.0) Seconds PTT Ratio Sodium 141 (136-145) mmol/L Potassium 3.6 (3.5-5.1) mmol/L Chloride 110 H (98-107) mmol/L Carbon Dioxide 24 (21-32) mmol/L Anion Gap 7.0 (3-11) BUN 9 D (7-18) mg/dl Creatinine 0.65 D (0.6-1.2) mg/dl Est Cr Clr Drug Dosing 124.4 ml/min Est GFR ( Amer) 133.3 Est GFR (Non-Af Amer) 115.0 BUN/Creatinine Ratio 14.0 (10-20) Glucose 122 H (70-99) mg/dl Lactate (0.4-2.0) mmol/L Calcium 8.5 (8.5-10.1) mg/dl Total Bilirubin 1.6 H D (0.2-1) mg/dl AST 11 L (15-37) U/L ALT 19 (12-78) U/L Alkaline Phosphatase 69 (45-117) U/L Total Protein 7.1 (6.4-8.2) gm/dl Albumin 3.9 (3.4-5.0) gm/dl Globulin 3.2 (2.5-4.0) gm/dl Albumin/Globulin Ratio 1.2 (0.9-2) Urine Color Yellow Urine Appearance Clear (Clear) Urine pH 6.5 (4.5-7.5) Ur Specific [place] 1.005 (1.000-1.030) Urine Protein Negative (Negative) Urine Glucose (UA) Negative (Negative) Urine Ketones Negative (Negative) Urine Blood 3+ H (Negative) Urine Nitrite Negative (Negative) Urine Bilirubin Negative (Negative) Urine Urobilinogen Negative (Negative) Ur Leukocyte Esterase Negative (Negative) Urine WBC (Auto) 0 (0-5) /hpf Urine RBC (Auto) 0-4 (0-4) /hpf U Hyaline Cast (Auto) 0 (0-5) /lpf U Epithel Cells (Auto) 5-10 H (0-5) /lpf Urine Bacteria (Auto) Negative (Negative) Urine Test Negative (Negative) Blood Type Antibody Screen 10/15/18 Range/Units 21:04 WBC (4.8-10.8) K/uL RBC (4.2-5.4) M/uL Hgb (12.0-16.0) g/dL Hct (37-47) % MCV (80-100) fL MCH (25-34) pg MCHC (32-36) g/dL RDW Std Deviation (36.4-46.3) fL RDW Coeff of Jony (11.5-14.5) % Plt Count (130-400) K/uL MPV (7.4-10.4) fL Immature Gran % (Auto) % Neut % (Auto) % Lymph % (Auto) % Morgan % (Auto) % Eos % (Auto) % Baso % (Auto) % Immature Gran # (Auto) (0.00-0.02) K/uL Neut # (Auto) (1.4-6.5) K/uL Lymph # (Auto) (1.2-3.4) K/uL Morgan # (Auto) (0.11-0.59) K/uL Eos # (Auto) (0-0.5) K/uL Baso # (Auto) (0-0.2) K/uL PT (9.0-12.0) Seconds INR (0.9-1.1) APTT (21.0-31.0) Seconds PTT Ratio Sodium (136-145) mmol/L Potassium (3.5-5.1) mmol/L Chloride (98-107) mmol/L Carbon Dioxide (21-32) mmol/L Anion Gap (3-11) BUN (7-18) mg/dl Creatinine (0.6-1.2) mg/dl Est Cr Clr Drug Dosing ml/min Est GFR ( Amer) Est GFR (Non-Af Amer) BUN/Creatinine Ratio (10-20) Glucose (70-99) mg/dl Lactate (0.4-2.0) mmol/L Calcium (8.5-10.1) mg/dl Total Bilirubin (0.2-1) mg/dl AST (15-37) U/L ALT (12-78) U/L Alkaline Phosphatase (45-117) U/L Total Protein (6.4-8.2) gm/dl Albumin (3.4-5.0) gm/dl Globulin (2.5-4.0) gm/dl Albumin/Globulin Ratio (0.9-2) Urine Color Urine Appearance (Clear) Urine pH (4.5-7.5) Ur Specific [place] (1.000-1.030) Urine Protein (Negative) Urine Glucose (UA) (Negative) Urine Ketones (Negative) Urine Blood (Negative) Urine Nitrite (Negative) Urine Bilirubin (Negative) Urine Urobilinogen (Negative) Ur Leukocyte Esterase (Negative) Urine WBC (Auto) (0-5) /hpf Urine RBC (Auto) (0-4) /hpf U Hyaline Cast (Auto) (0-5) /lpf U Epithel Cells (Auto) (0-5) /lpf Urine Bacteria (Auto) (Negative) Urine Test (Negative) Blood Type A Positive Antibody Screen NEGATIVE Imaging Data Radiologist's Impression: Radiology results as stated below per my review and the radiologist's interpretation: ULTRASOUND OF THE PELVIS CLINICAL HISTORY: Right pelvic pain. COMPARISON STUDY: Pelvic ultrasound dated 10/14/2018. Pelvic CT dated 10/15/2018. TECHNIQUE: Real-time, grayscale, and color flow sonography of the pelvis is performed both transabdominally and endovaginally. Images are reviewed in the transverse and longitudinal planes. FINDINGS: Uterus: The uterus is normal in size and echotexture, measuring 9.3 x 3.5 x 5.1 cm. Nabothian cysts are seen in the cervix. Endometrium: The endometrium is normal in appearance, and the endometrial stripe is normal in thickness measuring up to 0.6 cm. Ovaries: There is unchanged appearance of the right ovary from yesterday. The right ovary measures 5.4 x 4.1 x 5.2 cm. A homogeneously hyperechoic lesion within the right ovary measures 4.5 cm. No internal flow shown within this lesion on color imaging. The left ovary measures 3.3 x 2.1 x 2.7 cm. Small fol licles are noted in the left ovary. Normal Doppler waveforms are shown within both ovaries. Pelvis: There is a small volume of free fluid in the cul-de-sac. No concerning adnexal lesion is seen. IMPRESSION: 1. There is unchanged appearance of the right ovary as compared to yesterday. 2. A 4.5 cm homogeneously hyperechoic lesion within the right ovary shows no internal flow on color imaging. When correlated with yesterday's CT scan, the top differential considerations include a hemorrhagic cyst versus endometrioma. Follow-up ultrasound in 2-3 menstrual cycles is recommended to document res olution. 3. A small volume of free fluid is again seen in the cul-de-sac. Electronically signed by: Yovany Antony M.D. 10/15/2018 6:40 PM SINGLE VIEW CHEST CLINICAL HISTORY: Sepsis. FINDINGS: An AP, portable, upright chest radiograph is compared to study dated 05/15/2015. The examination is degraded by portable technique and patient rotation. The cardiomediastinal silhouette is unremarkable. There is mild bibasilar atelectasis. The lungs and pleural spaces are otherwise clear. No pneumothorax is seen. The bony thorax is grossly intact. IMPRESSION: No active disease in the chest. Electronically signed by: Yovany Antony M.D. 10/15/2018 5:29 PM ULTRASOUND OF THE PELVIS CLINICAL HISTORY: Right pelvic pain. COMPARISON STUDY: Pelvic ultrasound dated 10/14/2018. Pelvic CT dated 10/15/2018. TECHNIQUE: Real-time, grayscale, and color flow sonography of the pelvis is performed both transabdominally and endovaginally. Images are reviewed in the transverse and longitudinal planes. FINDINGS: Uterus: The uterus is normal in size and echotexture, measuring 9.3 x 3.5 x 5.1 cm. Nabothian cysts are seen in the cervix. Endometrium: The endometrium is normal in appearance, and the endometrial stripe is normal in thickness measuring up to 0.6 cm. Ovaries: There is unchanged appearance of the right ovary from yesterday. The right ovary measures 5.4 x 4.1 x 5.2 cm. A homogeneously hyperechoic lesion within the right ovary measures 4.5 cm. No internal flow shown within this le hannah on color imaging. The left ovary measures 3.3 x 2.1 x 2.7 cm. Small follicles are noted in the left ovary. Normal Doppler waveforms are shown within both ovaries. Pelvis: There is a small volume of free fluid in the cul-de-sac. No concerning adnexal lesion is seen. IMPRESSION: 1. There is unchanged appearance of the right ovary as compared to yesterday. 2. A 4.5 cm homogeneously hyperechoic lesion within the right ovary shows no internal flow on color imaging. When correlated with yesterday's CT scan, the top differential considerations include a hemorrhagic cyst versus endometrioma. Follow-up ultrasound in 2-3 menstrual cycles is recommended to document resolution. 3. A small volume of free fluid is again seen in the cul-de-sac. Electronically signed by: Yovany Antony M.D. 10/15/2018 6:40 PM Blood Pressure Blood Pressure Findings: Normal blood pressure Blood Pressure Disposition: did not require urgent referral MDM Narrative Patient is a 33-year-old female who presents the ER for right lower quadrant abdominal pain which has been worsening since yesterday. She was seen here yesterday had a CT abdomen pelvis along with ultrasound which showed a right ovarian cyst which was likely hemorrhagic. On exam she does have diffuse abdominal pain but focal in the right lower quadrant. She was febrile and tachycardic. IV was established blood work was obtained and showed a mild leukocytosis of 11.9 thousand improved from 16. Hemoglobin dropped slightly from 12.7-11.7. INR was unremarkable. BMP was unremarkable as well. T bili was slightly elevated at 1.6 as yesterday was normal. There is no transaminitis. She had no significant focal pain in the right upper quadrant. Lactate was normal. UA was unremarkable. was negative. Patient was given IV fluids and IV Dilaudid. She was also given IV Toradol. She is updated bedside. Ultrasound shows no significant change. Discussed with gynecology who evaluated the patient. Patient was taken to the OR for further evaluation. Impression & Plan Abdominal pain, Fever, Hemorrhagic cyst Discharge Plan Visit Data Chief Complaint: Pelvic Pain Stated Complaint: FEVER, PELVIC PAIN, OVARIAN CYST ED Provider: Gm Rios Discharge Problem: Abdominal pain, Fever, Hemorrhagic cyst Patient Disposition: Being Evaluated by Surgeon Discharge Instructions Interventions: ED Discharge Assessment Last Done: 10/15/18 21:28 Forms Stand Alone Forms: [facility] Prescriptions Prescriptions: No Action prenat.vits,floyd,mgk-tngl-jtpuz tablet 1 tab PO DAILY RF: 0 cyanocobalamin (vitamin B-12) [Vitamin B-12] 1,000 mcg tablet 1,000 mcg PO DAILY RF: 0 acetaminophen [Tylenol Extra Strength] 500 mg tablet 1,000 mg PO DIRECTED PRN (Reason: Pain) RF: 0 meclizine 25 mg tablet 25 - 50 mg PO TID PRN (Reason: Dizziness Or Vertigo) RF: 0 diphenhydramine HCl [Benadryl Allergy] 25 mg tablet 25 - 50 mg PO DIRECTED PRN (Reason: Dizziness Or Vertigo) RF: 0 ibuprofen [Advil] 200 mg tablet 400 - 600 mg PO Q6H PRN (Reason: Pain) RF: 0 gabapentin 300 mg capsule 300 mg PO QAM RF: 0 sertraline [Zoloft] 50 mg tablet 50 mg PO QAM RF: 0 ondansetron HCl [Zofran] 4 mg Tablet 4 - 8 mg PO TID PRN (Reason: Nausea) RF: 0 gabapentin 300 mg capsule 600 mg PO HS RF: 0 cholecalciferol (vitamin D3) [Vitamin D3] 1,000 unit Capsule 1,000 unit PO DAILY RF: 0 magnesium 250 mg Tablet 250 mg PO BID RF: 0 diclofenac sodium 75 mg tablet,delayed release (DR/EC) 75 mg PO BID PRN (Reason: pain) Qty: 30 RF: 0 ondansetron 4 mg tablet,disintegrating 4 mg PO Q6H PRN (Reason: nausea and vomiting) Qty: 12 RF: 0 Referrals Referrals: Margarito Gilman MD [Primary Care Provider] - Discharge Problem: Abdominal pain Qualifiers: Abdominal location: right lower quadrant Qualified Code(s): R10.31 - Right lower quadrant pain Fever Qualifiers: Fever type: unspecified Qualified Code(s): R50.9 - Fever, unspecified The scribe's documentation has been prepared under my direction and personally reviewed by me in its entirety. I confirm that the note above accurately reflects all work, treatment, procedures, and medical decision making performed by me.
[2018-10-15] MEDS ORDERED: ACETAMINOPHEN 325 MG TAB PO PRN (23:46)
--- NOTE | 2018-10-16 00:06 | Operative Report ---
Post Operative Report Pre & Post Diagnosis Operation Date: 10/15/18 21:30 Pre-Op Diagnosis: FEVER, PELVIC PAIN, OVARIAN CYST Post-Op Diagnosis: FEVER, PELVIC PAIN, OVARIAN Endometrioma Procedure Operation Date: 10/15/18 21:30 Actual Procedures: Operative Laparoscopy, Right Ovarian Cystectomy(Right), Chromotubation Surgeon Stefanie Power MD, FACOG Hotel Office Manager RN Estimated Blood Loss 2 Findings Consistent with Post-Op Diagnosis (normal uterus and left tube and ovary. right ovary adhesed to right sidewall with endometrioma with extruding tissue and contents. culdesac with evidence of endometriosis and cyst spillage. normal liver edge and gallbladder. patency of bilateral fallopian tubes. ) Fluids 1000 Specimens ovarian cyst wall/endometrioma Drains none Anesthesia Type General Complications none Disposition Accompanied Patient To Recovery: No Disposition: L&D Indications 33-year-old 0 with a history of pelvic pain,known right ovarian cyst and fever who presented to the emergency room. Given abdominal pain and onset of fever the decision with known ovarian lesion the decision was made to proceed with laparoscopy evaluation. Please see the history and physical for full details. Description of Procedure The patient was brought to the operating room and identified. After adequate general anesthesia was obtained the patient was placed in the dorsolithotomy position and prepped and draped in the usual sterile fashion. Attention was turned to the patient's vagina where a weighted speculum and anterior retractor was placed to visualize the cervix which was grasped on its anterior lip with an Allis clamp. An acorn uterine manipulator was gently placed through the cervical os and connected to the Allis clamp to allow for uterine manipulation. A Kuhn catheter was placed under sterile conditions. Attention was then turned to the patient's abdomen. A knife was used to create a infraumbilical skin incision. The veress needle was placed intraperitoneally with an opening pressure of 7 mmHg. A CO2 pneumoperitoneum was created. The optical 11 mm trocar was placed under direct visualization. Patient was placed in steep Trendelenburg. The pelvis was inspected with the findings as noted above. Two 5 mm trocar sites left and right of the midline were created by first making skin incisions and then then placing under direct visualization 5 mm trocars. The bowel was teased away from the planned operative sites. The right ovary was manipulated using an atraumatic grasper as well as a blunt probe and adhesions of the ovary to the right sidewall were bluntly taken down. The ovary was then completely mobilized. Endometrioma contents were noted extruding from an opening in the ovary and endometrioma tissues were removed to be sent as specimen. The pelvis was copiously irrigated. Small bleeding sites were noted. Minimal cautery was used near the juncture of the ovary and the right fallopian tube. Hemostasis was adequate. Decision was made to proceed with chromotubation to ensure patency particularly of the right fallopian tube which was involved in the operative manipulation. The fallopian tubes were notably patent. The raw surface area as well as the right ovary was further evaluated and no active bleeding was noted. At this point the procedure was terminated. CO2 gas was allowed to escape and patient's abdomen and the trocars removed. Infraumbilical fascia incision was reapproximated with 0 Vicryl and all skin incisions were closed with 4-0 Monocryl in a subcuticular fashion. The incisions were all injected with Marcaine of approximately 10 cc. The vaginal instruments were removed as well as the Kuhn catheter. The patient was returned to the supine position and awoken from anesthesia. She was transferred to the recovery room in stable condition. All sponge lap needle counts were correct x2. I attest to the content of the Intraoperative Record and any orders documented therein. Any exceptions are noted below.
--- NOTE | 2018-10-16 00:27 | Anesthesiology Progress Note ---
Date of Service October 16, 2018 Anesthesia Post Procedure Vital Signs Vital Signs: Temp Pulse Pulse Resp BP BP Pulse Ox 10/16/18 00:15 36.0 C L 91 H 16 125/71 93 10/16/18 00:08 36.0 C L 93 H 16 112/71 96 10/15/18 21:20 37.4 C 80 20 120/64 96 10/15/18 20:30 80 20 108/64 96 10/15/18 20:00 91 H 20 96 10/15/18 19:00 95 H 16 119/77 98 10/15/18 16:35 38.2 C H 113 H 16 104/68 99 Pain Intensity Lower Abdomen: Pain Intensity: 3 Transfer of Care Handoff Completed per policy Notes Mental Status: alert / awake / arousable Patient Amnestic to Procedure: Yes Nausea / Vomiting: adequately controlled Pain: adequately controlled Airway Patency, RR, SpO2: stable & adequate BP & HR: stable & adequate Hydration State: stable & adequate Anesthetic Complications: no major complications apparent and Pt Satisfied with anesthetic care
[2018-10-16] MEDS: LACTATED RINGER'S 1,000 ML IV SCH ×2 (01:21→09:00)
[2018-10-16] MEDS: IBUPROFEN 600 MG TAB PO PRN ×2 (01:28→08:20)
[2018-10-16] MEDS: ACETAMINOPHEN W/CODEINE #3 1 TAB PO PRN ×2 (01:51→12:10)
[2018-10-16] MEDS ORDERED: SIMETHICONE 80 MG CHEW PO PRN (06:34)
[2018-10-16 08:23] LABS: Hematocrit (blood only) 31.1 % (37-47); Hemoglobin 10.4 g/dL (12.0-16.0); Immature Granulocytes # (auto) 0.02 K/uL (0.00-0.02); Immature Granulocytes % (auto) 0.2 %; Lymphocytes # (auto) 0.45 K/uL (1.2-3.4); Lymphocytes % (auto) 4.4 %; Mean Corpuscular Hgb Conc 33.4 g/dL (32-36); Mean Corpuscular Volume 91.2 fL (80-100); Mean Platelet Volume 8.9 fL (7.4-10.4); Monocytes # (auto) 0.33 K/uL (0.11-0.59); Monocytes % (auto) 3.3 %; Neutrophils # (auto) 9.34 K/uL (1.4-6.5); Neutrophils % (auto) 92.1 %; Platelet Count 214 K/uL (130-400); RDW Coefficient of Variation 14.3 % (11.5-14.5); RDW Standard Deviation 47.3 fL (36.4-46.3); Red Blood Count 3.41 M/uL (4.2-5.4); White Blood Count 10.14 K/uL (4.8-10.8)
--- NOTE | 2018-10-16 13:13 | Gynecologic Progress Note ---
Date of Service October 16, 2018 Assessment & Plan (1) Fever: no fevers postop and wbc normalized, reassuring (2) Pelvic pain: pain improved postop (3) Right ovarian cyst: endometrioma with h/o infertility, will rec [place] consult (4) Endometriosis: ok for d/c home. f/u for postop, likely 10/24. will rec al referral. routine post op instructions reviewed and given. ok to give small amt tylenol #3. pa pdmp with no issues. pt aware of se, risks. discussed upright position to help with intraperitoneal gas and shoulder pain. Subjective doing well, having shoulder pain this am but abdominal pain is minimal. feels sore but not painful. no fever, chills. eating, voiding, ambulating. po pain meds. Review of Systems Constitutional: no fever and no chills Respiratory: no sob Cardiovascular: no chest pain Gastrointestinal: +flatus, had bm Genitourinary: no difficulty urinating Physical Exam Constitutional: WD/WN, vitals as above Respiratory: normal respiratory effort, lungs clear to auscultation Cardiovascular: Rate/Rhythm: regular rate and regular rhythm Gastrointestinal (Abdomen): Inspection/Auscultation: normal bowel sounds Percussion/Palpation: abdomen soft; abdomen nontender, no guarding and no hepatosplenomegaly umbilical site with brusing. incisions c/d/i Musculoskeletal: nt calves Psychiatric: A+Ox3, euthymic affect Results & Data Vital Signs (Past 12 Hours) Vital Signs Temp Pulse Pulse Resp BP Pulse Ox 10/16/18 08:30 90 16 100/63 98 10/16/18 04:20 97.7 F 101 H 18 91/53 L 97 10/16/18 03:31 98.1 F 92 H 18 109/72 97 10/16/18 02:20 98.1 F 96 H 18 112/71 95 10/16/18 01:50 97.9 F 95 H 18 106/67 97 10/16/18 01:31 98.2 F 96 H 18 128/78 98 10/16/18 01:20 97.9 F 96 H 18 110/73 100 PG Care Time/CCT Total # of Minutes Spent Total Time Spent with Patient: Total time spent is greater than 50% in coordination of care (as documented) at patient's floor/unit and/or counseling patient: (1) Fever Fever type: unspecified Qualified Code(s): R50.9 - Fever, unspecified
--- NOTE | 2018-10-18 11:09 | Discharge Summary ---
Date of Service Admit date October 14, 2018 Discharge date 10/15/18 Admission HPI Per Admitting Provider Admission diagnoses: 1. Pelvic pain 2. Right ovarian cyst 3. fever Discharge diagnoses: 1. Same 2. endometriosis\endometrioma Discharge Data Consultations 10/15/18 19:23 Consult Gynecology Stat Procedures Performed Operation Date: 10/15/18 21:30 Actual Procedures p Operative Laparoscopy, Right Ovarian Cystectomy(Right) - [facility] (1) Pelvic pain: (2) Right ovarian cyst: (3) Fever: 33-year-old G0 who presents to the emergency department please see the details of the emergency room consultation. Given her above stated diagnoses the decision was made to proceed to the operating room for evaluation of the pelvis likely operative laparoscopy with ovarian cyst removal or ovarian lj julee. The above stated procedures were performed. The patient's diagnosis was endometrioma, endometriosis. Her postoperative recovery was uncomplicated. On her postop day #0 she was stable for discharge to home. Instructions were reviewed with the patient and outpatient follow-up was planned. She was given written discharge instructions. She was given a small amount of narcotic prescription to use for pain control.
== END 2018-10-16 13:25 | disposition home or self-care (01) ==
LOC: 4N 16:34 → ED 16:34 → 4N 21:28

== ENCOUNTER 2021-07-28 10:13 | Observation (INO) ==
[2021-07-28] MEDS ORDERED: ONDANSETRON INJ 2 MG/ML 2 ML VIAL IV PRN (11:46)
[2021-07-28] MEDS ORDERED: LACTATED RINGER'S 1,000 ML IV PRN (11:46)
[2021-07-28] MEDS ORDERED: ACETAMINOPHEN 325 MG TAB PO PRN (11:46)
--- NOTE | 2021-07-28 11:57 | History & Physical Report ---
Date of Service July 28, 2021 Assessment & Plan (1) Rib pain on right side: Plan: 36 yo at EGA 36wk3d, MAGGIE 08/22/21 by ultrasound presenting for monitoring due to R rib pain. -Pain likely entire biomechanical in background of 3rd-trimester, acute pathologies such as cardiorespiratory/vascular pathologies have been ruled out -Hemodynamically stable, afebrile, FHT Category 1 -Not currently in labor -Pain control with lidocaine patch at present, continued from ER. Plans to take Tylenol at home for pain relief going forward -Admitted for observation in L&D for monitoring -Anticipate discharge home later today with regular f/u in OB clinic Admission and Anticipated Discharge Date Admission Date: July 28, 2021 History of Present Illness Chief Complaint: Rib pain Primary Care Provider: Margarito Gilman MD 36 yo at EGA 36wk3d, MAGGIE 08/22/21 by ultrasound presenting for monitoring due to R rib pain. Presented to ED today with several days of worsening R rib pain. R rib pain started about 1 week prior, mild severity and tolerable without need for intervention. She attributes pain to movement- baby is kicking same spot toward her R ribs multiple times a day. Pain began worsening over past 3 days and has progressed to 8/10 severity- it now disrupts her sleep. Reports Tylenol, warm compresses and comfortable positioning doesn't relieve her pain. Pain exacerbated with deep breathing. Denies any chest pain, headache or dyspnea, abdominal pain. Denies ctx, VB, LOF, reports active FM. Pt called Dr. Grover this AM and was advised to come to ER for evaluation. ER course- given IVF, lidocaine patch for pain control. CXR clear, EKG wnl, labs demonstrating mild leukocytosis to 11.9, elevated D-dimer to 1890, venous doppler wnl, troponin wnl PNI: -AMA -- donor [place] with ICSI - [place] [facility] [place]OL on 08/[address] Grover OBHx: -None GynHx: -No hx of abnormal smears -Menstrual cycles- menarche at 7, q28-31 days -No history of STIs Allergies Allergy/AdvReac Type Severity Reaction Status Date / Time latex Allergy Unknown Rash Verified 07/28/21 10:21 oxycodone Allergy Unknown Hives and Verified 07/25/21 11:45 disorientation prednisone Allergy insomnia Verified 07/25/21 11:45 CANTELOUPE Allergy Severe ANAPHYLAXIS Uncoded 10/08/20 14:18 HONEYDEW Allergy Severe ANAPHYLAXIS Uncoded 10/08/20 14:18 Percocet TABS Allergy Unknown Hives Uncoded 07/28/21 10:21 predniSONE TABS Allergy Unknown Insomnia Uncoded 07/28/21 10:21 Home Medications Medication Instructions Recorded Confirmed Type cyanocobalamin (vitamin B-12) 1,000 mcg PO DAILY 12/17/17 07/28/21 History 1,000 mcg tablet (Vitamin B-12) diphenhydramine HCl 25 mg tablet 25 - 50 mg PO DIRECTED PRN 12/17/17 07/28/21 History (Benadryl Allergy) sertraline 50 mg tablet (Zoloft) 50 mg PO QAM 12/17/17 07/28/21 History magnesium 250 mg tablet 250 mg PO BID 10/14/18 07/28/21 History folic acid 800 mcg tablet 800 mcg PO BID tab 12/26/18 07/28/21 History prenat.vits,floyd,zib-ionk-btebx 1 tab PO DAILY 12/26/18 07/28/21 History cholecalciferol (vitamin D3) 25 1,000 unit PO BID cap 03/07/19 07/28/21 History mcg (1,000 unit) capsule (Vitamin D3) sertraline 25 mg tablet 25 mg PO DAILY 06/27/19 07/28/21 History riboflavin (vitamin B2) 400 mg 400 mg PO DAILY 07/01/20 07/28/21 History tablet aspirin 81 mg tablet,delayed 81 mg PO DAILY 01/29/21 07/28/21 History release Past Med/Surg History Medical History Chronic migraine Depressive disorder Endometriosis Migraines Polycystic ovarian syndrome Right bundle branch block (RBBB) Traumatic brain injury Traumatic brain injury Surgical History History of colonoscopy History of colposcopy with cervical biopsy History of tonsillectomy and adenoidectomy History of wisdom tooth extraction Hx of nasal septoplasty S/P ovarian cystectomy Family History Grandfather (Paternal) Lung cancer Grandfather (Maternal) Lung cancer Father Skin cancer Sister Pancreatic cancer Other FH: migraines Social History Smoking Status: Never smoker Second Hand Exposure: No; Hx Alcohol Use: No Hx Substance Use: No Preferred Language: Kyrgyz Communication Ability: Effective Visual Impairment: Limited Hearing Ability: Normal Steel Pourer Required: No Beliefs That Will Affect Care: None marital status: marital status details: Spouse: Ross ( 41) [phone] Current Living Situation: Spouse Current Living Situation Comment: lives with spouse, 1 dog. current occupational status: unemployed current occupation: homemaker Other Information That Helps Us Care for You: No Feels Safe at Home: Yes Safety Concerns: Feels Safe At This Time Gender Identity: Female Assistive Devices: None Review of Systems Review of Systems: +R sided rib pain Denies fevers/chills. Denies dyspnea, cough. Denies chest pain. Denies breast pain or discharge. Denies dysuria. Denies headache. Denies back pain. Physical Exam Physical Exam: General: Alert, oriented, no acute distress Cardiac: Regular rate and rhythm, normal S1, S2. No murmurs appreciated. Respiratory: Clear to auscultation b/l with good air flow entry, symmetric chest rise and fall. No wheezes or crackles. No increased work of breathing or accessory muscle use Abdomen: Gravid, soft, nontender. No guarding or CVA tenderness. +Tender to palpation of R lateral torso along ribs Skin: No rashes or lesions Extremities: Warm, dry, well-perfused with capillary refill <2s b/l. No lower extremity edema, erythema, swelling or calf tenderness b/l Pelvic Exam per Dr. Quiles's attestation FHR Baseline: 135 BPM Variability: Moderate Accelerations: Present Decelerations: Absent Results & Data Results & Data ([facility]) Vital Signs (Past 12 Hours) Vital Signs Temp Pulse Resp BP 07/28/21 10:36 37.1 C 73 20 131/71 Resident Activity Tracking Resident Involvement: Resident Care Provided Care Provided: OB Delivery
== END 2021-07-28 11:58 | disposition home or self-care (01) ==
LOC: 4S1 10:13 → OPB 10:13 → 4S1 10:15

== ENCOUNTER 2021-08-03 06:53 | Inpatient (IN) ==
[2021-08-03] MEDS ORDERED: miSOPROStoL 50 MCG TAB PO ONE (07:45)
[2021-08-03] MEDS ORDERED: OXYTOCIN 30 UNITS/500 ML BAG IV PRN ×2 (07:45→16:10)
--- NOTE | 2021-08-03 07:55 | History & Physical Report ---
Date of Service August 03, 2021 Assessment & Plan (1) 37 weeks gestation of : (2) PROM (premature rupture of membranes): (3) Supervision of elderly primigravida: (4) resulting from in-vitro fertilization: Plan: admit, iv, labs. will plan po cytotec, reviewed with couple off label use and purpose. also reviewed plan of care with oncnikolai polk. fhts categ 1. needs another covid test. History of Present Illness Chief Complaint: leaking at 6am clear fluid Primary Care Provider: Margarito Gilman MD 36yo at 37+wks ega presents to L&D with above cc. Gross srom, clear fluid, +nitrazine. No ctx. Rib pain better with K taping. PNC c/b IVF/ICSI, poly, ama PNL rh pos, ri, GBS neg OBH: g1 GYNH: nl paps Allergies Allergy/AdvReac Type Severity Reaction Status Date / Time latex Allergy Unknown Rash Verified 08/01/21 10:54 oxycodone Allergy Unknown Hives and Verified 08/01/21 10:54 disorientation prednisone Allergy insomnia Verified 08/01/21 10:54 CANTELOUPE Allergy Severe ANAPHYLAXIS Uncoded 10/08/20 14:18 HONEYDEW Allergy Severe ANAPHYLAXIS Uncoded 10/08/20 14:18 Percocet TABS Allergy Unknown Hives Uncoded 07/28/21 10:21 predniSONE TABS Allergy Unknown Insomnia Uncoded 07/28/21 10:21 Home Medications Medication Instructions Recorded Confirmed Type cyanocobalamin (vitamin B-12) 1,000 mcg PO DAILY 12/17/17 08/03/21 History 1,000 mcg tablet (Vitamin B-12) diphenhydramine HCl 25 mg tablet 25 - 50 mg PO DIRECTED PRN 12/17/17 08/03/21 History (Benadryl Allergy) sertraline 50 mg tablet (Zoloft) 50 mg PO QAM 12/17/17 08/01/21 History magnesium 250 mg tablet 250 mg PO BID 10/14/18 08/03/21 History folic acid 800 mcg tablet 800 mcg PO BID tab 12/26/18 08/03/21 History prenat.vits,floyd,kxa-cvkc-ezsee 1 tab PO DAILY 12/26/18 08/03/21 History cholecalciferol (vitamin D3) 25 1,000 unit PO BID cap 03/07/19 08/03/21 History mcg (1,000 unit) capsule (Vitamin D3) sertraline 25 mg tablet 25 mg PO DAILY 06/27/19 08/01/21 History riboflavin (vitamin B2) 400 mg 400 mg PO DAILY 07/01/20 08/03/21 History tablet aspirin 81 mg tablet,delayed 81 mg PO DAILY 01/29/21 08/03/21 History release sertraline 50 mg tablet mg 08/03/21 History Patient History Medical History (Updated 08/03/21 @ 07:54 by Stefanie Power MD, FACOG) Chronic migraine Depressive disorder Endometriosis Hx of endometriosis Migraines Polycystic ovarian syndrome Right bundle branch block (RBBB) Traumatic brain injury Traumatic brain injury Surgical History History of colonoscopy History of colposcopy with cervical biopsy History of tonsillectomy and adenoidectomy History of wisdom tooth extraction Hx of nasal septoplasty S/P ovarian cystectomy Family History Grandfather (Paternal) Lung cancer Grandfather (Maternal) Lung cancer Father Skin cancer Sister Pancreatic cancer Other FH: migraines Social History Smoking Status: Never smoker Second Hand Exposure: No; Do You Dip or Chew Tobacco: No; Hx Alcohol Use: No Hx Substance Use: No Preferred Language: Polish Communication Ability: Effective Visual Impairment: Limited Hearing Ability: Normal Case Folder Required: No Beliefs That Will Affect Care: None marital status: marital status details: Spouse: Ross ( 41) [phone] Current Living Situation: Spouse Current Living Situation Comment: lives with spouse, 1 dog. current occupational status: unemployed current occupation: homemaker Feels Safe at Home: Yes Safety Concerns: Feels Safe At This Time Gender Identity: Female Assistive Devices: None Review of Systems as per Subjective / HPI Physical Exam Constitutional: WD/WN, vitals as above Respiratory: normal respiratory effort, lungs clear to auscultation Cardiovascular: Rate/Rhythm: regular rate and regular rhythm Gastrointestinal (Abdomen): soft gravid nt efw 6-7# Musculoskeletal: no edema nontender calves Neurologic: grossly normal Psychiatric: A+Ox3, euthymic affect Genitourinary: OB Exam Abdomen: + vertex (by u/s) Manual OB Exam: + cervical dilation (closed/long/hi, mid firm. cephalic by u/s) OB Exam Monitor Tracing: + external FHT monitor used, + external uterine monitor used (irrit), + category I and + normal FHT variability Results & Data ([facility]) Vital Signs (Past 12 Hours) Vital Signs Temp Pulse Resp BP 08/03/21 07:16 105 H 123/68 08/03/21 07:09 98.2 F 105 H 18 123/68 Coding Level of Care Code None Diagnoses 37 weeks gestation of Z3A.37 PROM (premature rupture of membranes) O42.90 Supervision of elderly primigravida O09.519 resulting from in-vitro fertilization O09.819
[2021-08-03 08:36] LABS: Hematocrit (blood only) 34.8 % (37-47); Mean Corpuscular Hemoglobin 31.7 pg (25-34); Mean Corpuscular Hgb Conc 34.5 g/dL (32-36); Mean Corpuscular Volume 92.1 fL (80-100); Mean Platelet Volume 10.2 fL (7.4-10.4); Platelet Count 255 K/uL (130-400); RDW Coefficient of Variation 14.2 % (11.5-14.5); RDW Standard Deviation 47.7 fL (36.4-46.3); Red Blood Count 3.78 M/uL (4.2-5.4); White Blood Count 12.56 K/uL (4.8-10.8)
--- NOTE | 2021-08-03 13:13 | Labor Progress Brief Note ---
Date of Service August 03, 2021 Subjective Starting to note contractions but talking comfortably Assessment & Plan (1) PROM (premature rupture of membranes): (2) 37 weeks gestation of : Plan: discussed expectant management as taisha too frequently for another cytotec vs. starting pit. cx still very unfavorable at this point. If ctx spaced would give another po cytotec. Will expectantly manage. fetus category one Admission and Anticipated Discharge Date Admission Date: August 03, 2021 Physical Exam Physical Exam: cx--ft/50/-3 toco--q3min efm--140s with mod variability, accels to 160s, no decels Results & Data ([place]) Vital Signs (Past 12 Hours) Vital Signs Temp Pulse Resp BP 08/03/21 11:17 37.0 C 08/03/21 07:16 105 H 123/68 08/03/21 07:09 36.8 C 105 H 18 123/68 Coding Level of Care Code None Diagnoses PROM (premature rupture of membranes) O42.90 37 weeks gestation of Z3A.37
--- NOTE | 2021-08-03 16:10 | Labor Progress Brief Note ---
Date of Service August 03, 2021 Assessment & Plan (1) PROM (premature rupture of membranes): (2) 37 weeks gestation of : Plan: contractions too close for another cytotec. Plan to start pitocin for augmentation. Fetus category one. Admission and Anticipated Discharge Date Admission Date: August 03, 2021 Physical Exam Physical Exam: toco--q 2-3 min efm--140s wtih mod variability, accels present, no decels Results & Data ([facility]) Vital Signs (Past 12 Hours) Vital Signs Temp Pulse Resp BP 08/03/21 14:16 36.8 C 92 H 125/69 08/03/21 11:17 37.0 C 08/03/21 07:16 105 H 123/68 08/03/21 07:09 36.8 C 105 H 18 123/68 Coding Level of Care Code None Diagnoses PROM (premature rupture of membranes) O42.90 37 weeks gestation of Z3A.37
--- NOTE | 2021-08-03 17:22 | Labor Progress Brief Note ---
Date of Service August 03, 2021 Subjective noting contractions more painful, noting in back. Assessment & Plan (1) PROM (premature rupture of membranes): (2) 37 weeks gestation of : Plan: start pitocin. taisha too frequently for another cytotec. epidural on demand. fetus reassuring. Admission and Anticipated Discharge Date Admission Date: August 03, 2021 Physical Exam Physical Exam: cx--1/l/h toco--q2-3min efm--category one. Results & Data ([facility]) Vital Signs (Past 12 Hours) Vital Signs Temp Pulse Resp BP 08/03/21 14:16 36.8 C 92 H 125/69 08/03/21 11:17 37.0 C 08/03/21 07:16 105 H 123/68 08/03/21 07:09 36.8 C 105 H 18 123/68 Coding Level of Care Code None Diagnoses PROM (premature rupture of membranes) O42.90 37 weeks gestation of Z3A.37
[2021-08-03] MEDS: LACTATED RINGER'S 1,000 ML IV PRN (17:43)
[2021-08-03] MEDS ORDERED: SERTRALINE HCL 50 MG TABLET PO ONE (20:37)
[2021-08-03] MEDS ORDERED: ACETAMINOPHEN 325 MG TAB PO PRN (21:11)
--- NOTE | 2021-08-04 00:01 | Labor Progress Brief Note ---
Date of Service August 04, 2021 Subjective Notes getting uncomfortable with contractions. Assessment & Plan (1) 37 weeks gestation of : (2) PROM (premature rupture of membranes): Plan: continue current management. fetus category one. Admission and Anticipated Discharge Date Admission Date: August 03, 2021 Physical Exam Physical Exam: cx--/-2 toco--q3-4min efm--130s with mod variability, accels to 150s, no decels Results & Data ([place]) Vital Signs (Past 12 Hours) Vital Signs Temp Pulse Resp BP 08/03/21 23:03 36.8 C 86 18 132/71 08/03/21 21:55 86 128/72 08/03/21 21:04 36.7 C 92 H 18 141/76 H 08/03/21 20:08 94 H 139/67 08/03/21 19:10 93 H 126/77 08/03/21 19:07 36.9 C 18 08/03/21 17:47 91 H 122/77 08/03/21 17:30 37.1 C 08/03/21 14:16 36.8 C 92 H 125/69 Coding Level of Care Code None Diagnoses 37 weeks gestation of Z3A.37 PROM (premature rupture of membranes) O42.90
[2021-08-04] MEDS: LACTATED RINGER'S 1,000 ML IV PRN ×4 (01:02→16:38)
[2021-08-04] MEDS ORDERED: BUTORPHANOL TARTRATE 1 MG/ML VIAL ONE (01:43)
[2021-08-04] MEDS: BUTORPHANOL TARTRATE 1 MG/ML VIAL IV PRN ×2 (05:06→19:43)
--- NOTE | 2021-08-04 07:56 | Labor Progress Brief Note ---
Date of Service August 04, 2021 Subjective currently sleeping. got stadol at 5am Assessment & Plan (1) PROM (premature rupture of membranes): (2) 37 weeks gestation of : Plan: continue current management. fetus category one. Admission and Anticipated Discharge Date Admission Date: August 03, 2021 Physical Exam Physical Exam: cx--deferred toco--q2--3, pit at 15 efm--140s with mod variability, accels to 150s, no decels Results & Data ([facility]) Vital Signs (Past 12 Hours) Vital Signs Temp Pulse Resp BP 08/04/21 06:55 36.9 C 90 121/73 08/04/21 06:02 85 124/68 08/04/21 05:02 90 128/74 08/04/21 05:00 36.8 C 18 08/04/21 03:58 88 125/68 08/04/21 03:01 36.9 C 90 18 114/61 08/04/21 01:54 86 116/65 08/04/21 01:18 36.8 C 81 16 117/55 L 08/04/21 00:02 82 123/74 08/03/21 23:03 36.8 C 86 18 132/71 08/03/21 21:55 86 128/72 08/03/21 21:04 36.7 C 92 H 18 141/76 H 08/03/21 20:08 94 H 139/67 Coding Level of Care Code None Diagnoses PROM (premature rupture of membranes) O42.90 37 weeks gestation of Z3A.37
[2021-08-04] MEDS ORDERED: ePHEDrine sulfate 50 MG/ML AMP ONE ×2 (08:42→19:37)
[2021-08-04] MEDS ORDERED: SODIUM CHLORIDE 0.9% INJ 10 ML VIAL ONE ×3 (08:42→20:45)
[2021-08-04] MEDS ORDERED: fentaNYL citrate 100 MCG/2 ML VIAL ONE ×2 (08:42→19:38)
[2021-08-04] MEDS ORDERED: fentaNYL 2MCG/ML ROPIVACAINE 1.25MG/ML 100 ML BAG EPI ONE ×2 (08:43→19:38)
[2021-08-04] MEDS ORDERED: BUPIVACAINE 0.25% 30 ML VIAL ONE ×3 (08:43→20:46)
--- NOTE | 2021-08-04 08:53 | Labor Progress Brief Note ---
Date of Service August 04, 2021 Subjective Presented to room with RN, my partner to meet w/ pt and let her and know that I am taking over care. Pt a little tearful as she is concerned about not making much progress despite having rom around 6am yesterday. Pt notes that this is similar to what happened with her grandmother and she was forced to have natural delivery and that baby 2 days later. She is not sure if she wants to keep going with induction/augmentation process Assessment & Plan (1) PROM (premature rupture of membranes): (2) 37 weeks gestation of : Plan: 36 y/o G1 at 37 3/7 [facility] admitted w/ prom VSS Fetus cat 1 Labor - s/p cytotec yesterday. Pit was started 5-6pm last evening, curently at 16. Previous on-call provider noted that her last exam overnight was very tight 1, my exam appears to demonstrate some progression. Discussed w/ pt and her that both she and baby look reassuring right now w/o evidence of infection. Discussed clinically is ok to continue the augmentation process, some pts need more pitocin than others. Can also try an epidural to see if would help, IUPC to help titrate pitocin as well if she is amenable to continuing. At this point, she is ok with continuing, will consider an epidural in a bit and continue titration. Ample time given for questions, answered to apparent satisfaction Admission and Anticipated Discharge Date Admission Date: August 03, 2021 Physical Exam Genitourinary: Manual OB Exam: + cervical dilation (loose 1), + cervical effacement 50% and + station -2 OB Exam Monitor Tracing: + external FHT monitor used, + external uterine monitor used (q3-4) and + category I (125/mod/+accel/-decel) Results & Data ([facility]) Vital Signs (Past 12 Hours) Vital Signs Temp Pulse Resp BP 08/04/21 08:00 92 H 139/73 08/04/21 06:55 98.4 F 90 121/73 08/04/21 06:02 85 124/68 08/04/21 05:02 90 128/74 08/04/21 05:00 98.2 F 18 08/04/21 03:58 88 125/68 08/04/21 03:01 98.4 F 90 18 114/61 08/04/21 01:54 86 116/65 08/04/21 01:18 98.2 F 81 16 117/55 L 08/04/21 00:02 82 123/74 08/03/21 23:03 98.2 F 86 18 132/71 08/03/21 21:55 86 128/72 08/03/21 21:04 98.1 F 92 H 18 141/76 H Coding Level of Care Code None Diagnoses PROM (premature rupture of membranes) O42.90 37 weeks gestation of Z3A.37
[2021-08-04] MEDS ORDERED: NALBUPHINE HCL INJ 10 MG/ML AMP IV PRN (10:41)
[2021-08-04] MEDS ORDERED: PROMETHAZINE HCL 6.25 MG in SODIUM CHLORIDE 0.9% 50 ML IV PRN (10:41)
[2021-08-04] MEDS ORDERED: NALOXONE HCL 0.4 MG/1 ML VIAL/CARP IV PRN (10:41)
[2021-08-04] MEDS ORDERED: NALOXONE HCL 1 MG in SODIUM CHLORIDE 0.9% 1000ML 1,000 ML IV PRN (10:41)
[2021-08-04] MEDS ORDERED: diphenhydrAMINE 50 MG/ML VIAL IV PRN (10:41)
--- NOTE | 2021-08-04 10:41 | Anesthesiology Consultation ---
Date of Service August 04, 2021 Assessment & Plan Chart Review Chart Review: Patient NOT seen in Pre Admission Testing and Acceptable Risk for Labor Epidural Consults Requested none ASA ASA2 Proposed Anesthesia Anesthesia Type: Labor Epidural Risk / Benefits Reviewed With: PT / POA / Parent / Guardian, Accepts Plan and Informed Consent Obtained History Height/Weight Height: 5 ft 4 in Weight: 99.337 kg Allergies Allergy/AdvReac Type Severity Reaction Status Date / Time latex Allergy Unknown Rash Verified 08/01/21 10:54 oxycodone Allergy Unknown Hives and Verified 08/01/21 10:54 disorientation prednisone Allergy insomnia Verified 08/01/21 10:54 CANTELOUPE Allergy Severe ANAPHYLAXIS Uncoded 10/08/20 14:18 HONEYDEW Allergy Severe ANAPHYLAXIS Uncoded 10/08/20 14:18 Medications Home Medications Medication Instructions Recorded Confirmed Last Taken cyanocobalamin (vitamin B-12) 1,000 mcg PO DAILY 12/17/17 08/03/21 08/02/21 15:00 1,000 mcg tablet (Vitamin B-12) diphenhydramine HCl 25 mg tablet 25 - 50 mg PO DIRECTED PRN 12/17/17 08/03/21 08/02/21 19:00 (Benadryl Allergy) sertraline 50 mg tablet (Zoloft) 50 mg PO QAM 12/17/17 08/01/21 07/29/21 magnesium 250 mg tablet 250 mg PO BID 10/14/18 08/03/21 08/02/21 15:00 folic acid 800 mcg tablet 800 mcg PO BID tab 12/26/18 08/03/21 08/02/21 15:00 prenat.vits,floyd,gwg-pqug-jufjv 1 tab PO DAILY 12/26/18 08/03/21 08/02/21 15:00 cholecalciferol (vitamin D3) 25 1,000 unit PO BID cap 03/07/19 08/03/21 08/02/21 15:00 mcg (1,000 unit) capsule (Vitamin D3) sertraline 25 mg tablet 25 mg PO DAILY 06/27/19 08/01/21 07/29/21 riboflavin (vitamin B2) 400 mg 400 mg PO DAILY 07/01/20 08/03/21 08/02/21 15:00 tablet aspirin 81 mg tablet,delayed 81 mg PO DAILY 01/29/21 08/03/21 08/02/21 15:00 release sertraline 50 mg tablet mg 08/03/21 08/02/21 15:00 Active Medications Generic Name Dose Route Start Last Admin Trade Name Freq PRN Reason Stop Dose Admin Acetaminophen 650 mg 08/03/21 21:11 08/03/21 21:22 Acetaminophen 325 Mg Tab PO 09/02/21 21:10 650 mg Q4H PRN Administration Headache Butorphanol Tartrate 1 mg 08/04/21 01:40 08/04/21 05:06 Butorphanol Tartrate 1 Mg/Ml Vial IV 09/03/21 01:39 1 mg Q2HWA PRN Administration Pain Lactated Ringer's 1,000 mls @ 125 mls/hr 08/03/21 07:45 08/04/21 09:59 Lr IV 08/05/21 07:44 125 mls/hr .Q8H PRN Administration L&D Protocol Protocol Oxytocin 30 units in 500 mls @ 17 mls/hr 08/03/21 16:10 08/04/21 08:36 Pitocin IV 08/05/21 16:09 1.02 units/hr .Q24H PRN 17 mls/hr Labor Induction/Augmentation Titration Protocol 1.02 UNITS/HR Past Medical History Medical History (Updated 08/03/21 @ 07:54 by Stefanie Power MD, FACOG) Chronic migraine Depressive disorder Endometriosis Hx of endometriosis Migraines Polycystic ovarian syndrome Right bundle branch block (RBBB) Traumatic brain injury Traumatic brain injury Exercise / Class Metabolic Activity II 4-5 Yardwork/Stairs/Walk up hill Past Family History Family History Grandfather (Paternal) Lung cancer Grandfather (Maternal) Lung cancer Father Skin cancer Sister Pancreatic cancer Other FH: migraines Past Surgical History Surgical History History of colonoscopy History of colposcopy with cervical biopsy History of tonsillectomy and adenoidectomy History of wisdom tooth extraction Hx of nasal septoplasty S/P ovarian cystectomy Past Anesthesia History No Hx of Anesthesia Complications and No Family Hx of Anesthesia Complications History of PONV No Hx of PONV and No Hx of Motion Sickness Social History Smoking Status: Never smoker Do You Dip or Chew Tobacco: No Hx Alcohol Use: No alcohol intake frequency: holidays/special occasions only Hx Substance Use: No substance use type: does not use Physical Exam Vital Signs Last Vital Signs Temp 36.9 C 08/04/21 06:55 Pulse 93 H 08/04/21 10:37 Resp 18 08/04/21 05:00 BP 135/79 08/04/21 10:37 Pulse Ox 100 08/04/21 10:36 ENMT Mouth: no dentition abnormality Thyromental Distance: > or= 3.5 Finger Breadths Mallampati Class: II Neck normal visual inspection Respiratory normal respiratory effort Auscultation: lungs clear to auscultation bilaterally Cardiovascular Rate/Rhythm: regular rate and regular rhythm Psychiatric Orientation: alert Testing Laboratory Results 08/03/21 08:15
[2021-08-04] MEDS: ONDANSETRON INJ 2 MG/ML 2 ML VIAL IV PRN ×2 (11:05→18:47)
--- NOTE | 2021-08-04 11:09 | Labor Progress Brief Note ---
Date of Service August 04, 2021 Subjective Pt notes she got more uncomfortable prior to epidural, comfortable w/ epidural now Assessment & Plan (1) PROM (premature rupture of membranes): (2) 37 weeks gestation of : Plan: 36 y/o G1 at 37 3/7 [facility] admitted w/ prom VSS Fetus cat 1 Labor - continue pit titration, IUPC placed. Will be able to go up to 24 w/ iupc in place for now GBS neg epidural in place Admission and Anticipated Discharge Date Admission Date: August 03, 2021 Physical Exam Genitourinary: Manual OB Exam: + cervical dilation (loose 1), + cervical effacement 50% and + station -2 OB Exam Monitor Tracing: + external FHT monitor used, + intra-uterine pressure catheter used (placed, q3-4) and + category I (125/mod/+accel/-decel) Results & Data ([facility]) Vital Signs (Past 12 Hours) Vital Signs Temp Pulse Resp BP Pulse Ox 08/04/21 11:01 90 100 08/04/21 10:56 97 H 144/74 H 100 08/04/21 10:51 100 H 100 08/04/21 10:50 94 H 137/70 08/04/21 10:46 95 H 100 08/04/21 10:45 96 H 136/76 08/04/21 10:43 93 H 135/72 08/04/21 10:41 97 H 137/73 100 08/04/21 10:39 91 H 140/79 08/04/21 10:37 93 H 135/79 08/04/21 10:36 97 H 100 08/04/21 10:35 103 H 135/80 08/04/21 10:33 93 H 137/83 08/04/21 10:31 96 H 133/92 100 08/04/21 10:29 90 136/93 08/04/21 10:26 86 100 08/04/21 10:21 91 H 100 08/04/21 10:17 100 H 156/78 H 08/04/21 10:16 87 100 08/04/21 10:15 93 H 139/66 08/04/21 10:13 97 H 145/66 H 08/04/21 10:11 98 H 154/73 H 100 08/04/21 10:09 109 H 140/68 08/04/21 10:06 84 100 05/30/22 10:05 86 126/66 08/04/21 10:01 88 100 08/04/21 10:00 84 123/56 L 08/04/21 09:58 86 128/62 08/04/21 09:56 82 134/64 100 08/04/21 09:54 83 133/60 08/04/21 09:52 83 135/63 08/04/21 09:51 83 137/66 100 08/04/21 09:39 89 98 08/04/21 09:34 87 98 08/04/21 09:29 84 98 08/04/21 09:24 86 98 08/04/21 09:19 87 98 08/04/21 09:14 80 100 08/04/21 08:00 92 H 139/73 08/04/21 06:55 98.4 F 90 121/73 08/04/21 06:02 85 124/68 08/04/21 05:02 90 128/74 08/04/21 05:00 98.2 F 18 08/04/21 03:58 88 125/68 08/04/21 03:01 98.4 F 90 18 114/61 08/04/21 01:54 86 116/65 08/04/21 01:18 98.2 F 81 16 117/55 L 08/04/21 00:02 82 123/74 Coding Level of Care Code None Diagnoses PROM (premature rupture of membranes) O42.90 37 weeks gestation of Z3A.37
[2021-08-04] MEDS: ePHEDrine sulfate 50 MG/ML AMP IV PRN ×2 (11:15→11:19)
--- NOTE | 2021-08-04 13:22 | Labor Progress Brief Note ---
Date of Service August 04, 2021 Subjective Comfortable w/ epidural Assessment & Plan (1) PROM (premature rupture of membranes): (2) 37 weeks gestation of : Plan: 36 y/o G1 at 37 3/7 [facility]ga admitted w/ prom VSS Fetus cat 2 but reassuring Labor - ctx are starting to become occ adequate, there is some progress. Some intermittent variables are noted though, discussed turning pit off as now up to 24 and give short pit break and break then restart and pt amenable. Reassuring that some progress is noted, cervix is still thick/does not really seem in labor GBS neg epidural in place Admission and Anticipated Discharge Date Admission Date: August 03, 2021 Physical Exam Genitourinary: Manual OB Exam: + cervical dilation 2 cm, + cervical effacement 50% and + station -2 OB Exam Monitor Tracing: + external FHT monitor used, + intra-uterine pressure catheter used (placed, q3-4) and + category I (135- 140/mod/+accel/some variables/early) Results & Data ([facility]) Vital Signs (Past 12 Hours) Vital Signs Temp Pulse Resp BP Pulse Ox 08/04/21 13:17 98 H 126/64 08/04/21 13:16 100 H 99 08/04/21 13:11 102 H 98 08/04/21 13:06 100 H 97 08/04/21 13:02 102 H 125/63 08/04/21 13:01 99 H 98 08/04/21 13:00 98.2 F 18 08/04/21 12:56 102 H 99 08/04/21 12:51 97 H 97 08/04/21 12:47 95 H 126/59 L 08/04/21 12:46 93 H 99 08/04/21 12:45 18 08/04/21 12:41 92 H 97 08/04/21 12:38 95 H 94 08/04/21 12:36 93 H 95 08/04/21 12:32 86 126/58 L 08/04/21 12:31 93 H 97 08/04/21 12:30 18 08/04/21 12:27 93 H 94 08/04/21 12:26 95 H 94 08/04/21 12:21 94 H 95 08/04/21 12:17 90 118/58 L 08/04/21 12:16 92 H 95 08/04/21 12:15 18 08/04/21 12:11 92 H 96 08/04/21 12:06 88 96 08/04/21 12:03 86 122/56 L 08/04/21 12:01 90 96 08/04/21 12:00 18 08/04/21 11:56 91 H 95 08/04/21 11:51 90 97 08/04/21 11:47 90 123/58 L 08/04/21 11:46 90 97 08/04/21 11:45 18 08/04/21 11:41 92 H 97 08/04/21 11:36 85 99 08/04/21 11:32 96 H 125/60 08/04/21 11:31 92 H 99 08/04/21 11:30 86 18 122/60 08/04/21 11:28 86 117/58 L 08/04/21 11:26 93 H 114/55 L 99 08/04/21 11:24 85 113/54 L 08/04/21 11:22 98.2 F 88 105/50 L 08/04/21 11:21 89 98 08/04/21 11:20 88 114/56 L 08/04/21 11:16 85 86/54 L 100 08/04/21 11:15 18 08/04/21 11:14 84 95/61 L 08/04/21 11:11 87 104/55 L 100 08/04/21 11:06 91 H 99 08/04/21 11:01 90 100 08/04/21 11:00 18 08/04/21 10:56 97 H 144/74 H 100 08/04/21 10:51 100 H 100 08/04/21 10:50 94 H 137/70 08/04/21 10:46 95 H 100 08/04/21 10:45 96 H 18 136/76 08/04/21 10:43 93 H 135/72 08/04/21 10:41 97 H 137/73 100 08/04/21 10:39 91 H 140/79 08/04/21 10:37 93 H 135/79 08/04/21 10:36 97 H 100 08/04/21 10:35 103 H 135/80 08/04/21 10:33 93 H 137/83 08/04/21 10:31 96 H 133/92 100 08/04/21 10:30 18 08/04/21 10:29 90 136/93 08/04/21 10:26 86 100 08/04/21 10:21 91 H 100 08/04/21 10:17 100 H 156/78 H 08/04/21 10:16 87 100 08/04/21 10:15 93 H 18 139/66 08/04/21 10:13 97 H 145/66 H 08/04/21 10:11 98 H 154/73 H 100 08/04/21 10:09 109 H 140/68 08/04/21 10:06 84 100 08/04/21 10:05 86 126/66 08/04/21 10:01 88 100 08/04/21 10:00 84 123/56 L 08/04/21 09:58 86 128/62 08/04/21 09:56 82 134/64 100 08/04/21 09:54 83 133/60 08/04/21 09:52 83 135/63 08/04/21 09:51 83 137/66 100 08/04/21 09:39 89 98 08/04/21 09:34 87 98 08/04/21 09:29 84 98 08/04/21 09:24 86 98 08/04/21 09:19 87 98 08/04/21 09:14 80 100 08/04/21 08:00 92 H 139/73 08/04/21 06:55 98.4 F 90 121/73 08/04/21 06:02 85 124/68 08/04/21 05:02 90 128/74 08/04/21 05:00 98.2 F 18 08/04/21 03:58 88 125/68 08/04/21 03:01 98.4 F 90 18 114/61 08/04/21 01:54 86 116/65 Coding Level of Care Code None Diagnoses PROM (premature rupture of membranes) O42.90 37 weeks gestation of Z3A.37
--- NOTE | 2021-08-04 16:42 | Labor Progress Brief Note ---
Date of Service August 04, 2021 Subjective Has been having increased pain over last hour. 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 Pt increasingly uncomfortable though and says that she is not sure how much longer she can do this without significant progress. Discussed she has progressed 2cm for me today which is certainly an improvement from yesterday but is in a lot of pain currently. Offered to have anesthesia re-eval and see if can get bolus, nursing is able to increase epidural settings now so will try that first. She is willing to see if adjusting anesthesia can help but is still not sure she wants to continue augmentation process at this point GBS neg epidural in place Admission and Anticipated Discharge Date Admission Date: August 03, 2021 Physical Exam Genitourinary: Manual OB Exam: + cervical dilation 3 cm, + cervical effacement 50% (some progression from last exam noted) and + station -2 OB Exam Monitor Tracing: + external FHT monitor used, + intra-uterine pressure catheter used (q3-5) and + category I (125-130//mod/+accel/-decel) Results & Data ([facility]) Vital Signs (Past 12 Hours) Vital Signs Temp Pulse Resp BP Pulse Ox 08/04/21 16:36 108 H 97 08/04/21 16:32 105 H 135/71 08/04/21 16:31 105 H 99 08/04/21 16:26 105 H 98 08/04/21 16:21 104 H 98 08/04/21 16:18 109 H 142/72 H 08/04/21 16:16 110 H 97 08/04/21 16:15 18 08/04/21 16:11 115 H 97 08/04/21 16:06 107 H 98 08/04/21 16:02 108 H 124/63 08/04/21 16:01 110 H 97 08/04/21 16:00 18 08/04/21 15:56 105 H 96 08/04/21 15:51 105 H 97 08/04/21 15:47 101 H 123/63 08/04/21 15:46 103 H 98 08/04/21 15:45 18 08/04/21 15:41 103 H 97 08/04/21 15:36 103 H 98 08/04/21 15:32 104 H 122/61 08/04/21 15:31 100 H 97 08/04/21 15:30 18 08/04/21 15:26 101 H 97 08/04/21 15:21 107 H 97 08/04/21 15:17 105 H 125/60 08/04/21 15:16 102 H 97 08/04/21 15:15 18 08/04/21 15:11 108 H 98 08/04/21 15:06 106 H 98 08/04/21 15:02 110 H 122/61 08/04/21 15:01 108 H 98 08/04/21 15:00 98.2 F 18 08/04/21 14:56 98 H 96 08/04/21 14:51 98 H 97 08/04/21 14:47 100 H 113/55 L 08/04/21 14:46 98 H 97 08/04/21 14:45 18 08/04/21 14:41 98 H 97 08/04/21 14:36 98 H 97 08/04/21 14:32 105 H 113/56 L 08/04/21 14:31 97 H 97 08/04/21 14:26 95 H 97 08/04/21 14:21 106 H 97 08/04/21 14:17 93 H 112/58 L 08/04/21 14:16 107 H 97 08/04/21 14:11 99 H 96 08/04/21 14:06 98 H 96 08/04/21 14:02 105 H 109/54 L 08/04/21 14:01 105 H 97 08/04/21 13:56 99 H 97 08/04/21 13:51 93 H 98 08/04/21 13:48 97 H 112/53 L 08/04/21 13:46 98 H 96 08/04/21 13:41 96 H 96 08/04/21 13:36 93 H 97 08/04/21 13:32 90 117/57 L 08/04/21 13:31 92 H 98 08/04/21 13:26 95 H 99 08/04/21 13:21 98 H 98 05/30/22 13:17 98 H 126/64 08/04/21 13:16 100 H 99 08/04/21 13:11 102 H 98 08/04/21 13:06 100 H 97 08/04/21 13:02 102 H 125/63 08/04/21 13:01 99 H 98 08/04/21 13:00 98.2 F 18 08/04/21 12:56 102 H 99 08/04/21 12:51 97 H 97 08/04/21 12:47 95 H 126/59 L 08/04/21 12:46 93 H 99 08/04/21 12:45 18 08/04/21 12:41 92 H 97 08/04/21 12:38 95 H 94 08/04/21 12:36 93 H 95 08/04/21 12:32 86 126/58 L 08/04/21 12:31 93 H 97 08/04/21 12:30 18 08/04/21 12:27 93 H 94 08/04/21 12:26 95 H 94 08/04/21 12:21 94 H 95 08/04/21 12:17 90 118/58 L 08/04/21 12:16 92 H 95 08/04/21 12:15 18 08/04/21 12:11 92 H 96 08/04/21 12:06 88 96 08/04/21 12:03 86 122/56 L 08/04/21 12:01 90 96 08/04/21 12:00 18 08/04/21 11:56 91 H 95 08/04/21 11:51 90 97 08/04/21 11:47 90 123/58 L 08/04/21 11:46 90 97 08/04/21 11:45 18 08/04/21 11:41 92 H 97 08/04/21 11:36 85 99 08/04/21 11:32 96 H 125/60 08/04/21 11:31 92 H 99 08/04/21 11:30 86 18 122/60 08/04/21 11:28 86 117/58 L 08/04/21 11:26 93 H 114/55 L 99 08/04/21 11:24 85 113/54 L 08/04/21 11:22 98.2 F 88 105/50 L 08/04/21 11:21 89 98 08/04/21 11:20 88 114/56 L 08/04/21 11:16 85 86/54 L 100 08/04/21 11:15 18 08/04/21 11:14 84 95/61 L 08/04/21 11:11 87 104/55 L 100 08/04/21 11:06 91 H 99 08/04/21 11:01 90 100 08/04/21 11:00 18 08/04/21 10:56 97 H 144/74 H 100 08/04/21 10:51 100 H 100 08/04/21 10:50 94 H 137/70 08/04/21 10:46 95 H 100 08/04/21 10:45 96 H 18 136/76 08/04/21 10:43 93 H 135/72 08/04/21 10:41 97 H 137/73 100 08/04/21 10:39 91 H 140/79 08/04/21 10:37 93 H 135/79 08/04/21 10:36 97 H 100 08/04/21 10:35 103 H 135/80 08/04/21 10:33 93 H 137/83 08/04/21 10:31 96 H 133/92 100 08/04/21 10:30 18 08/04/21 10:29 90 136/93 08/04/21 10:26 86 100 08/04/21 10:21 91 H 100 08/04/21 10:17 100 H 156/78 H 08/04/21 10:16 87 100 08/04/21 10:15 93 H 18 139/66 08/04/21 10:13 97 H 145/66 H 08/04/21 10:11 98 H 154/73 H 100 08/04/21 10:09 109 H 140/68 08/04/21 10:06 84 100 08/04/21 10:05 86 126/66 08/04/21 10:01 88 100 08/04/21 10:00 84 123/56 L 08/04/21 09:58 86 128/62 08/04/21 09:56 82 134/64 100 08/04/21 09:54 83 133/60 08/04/21 09:52 83 135/63 08/04/21 09:51 83 137/66 100 08/04/21 09:39 89 98 08/04/21 09:34 87 98 08/04/21 09:29 84 98 08/04/21 09:24 86 98 08/04/21 09:19 87 98 08/04/21 09:14 80 100 08/04/21 08:00 92 H 139/73 08/04/21 06:55 98.4 F 90 121/73 08/04/21 06:02 85 124/68 08/04/21 05:02 90 128/74 08/04/21 05:00 98.2 F 18 Coding Level of Care Code None Diagnoses PROM (premature rupture of membranes) O42.90 37 weeks gestation of Z3A.37
[2021-08-04] MEDS ORDERED: NURSING L&D Epidural Breakthrough Pain Update ONE (16:47)
[2021-08-04] MEDS ORDERED: ROPIVACAINE 0.5% 5 MG/ML 30 ML VIAL ONE (17:07)
[2021-08-04] MEDS ORDERED: LIDOCAINE 2%/EPINEPHRINE 1:200,000 20 ML SDV ONE (17:07)
[2021-08-04] MEDS: fentaNYL 2MCG/ML ROPIVACAINE 1.25MG/ML 100 ML BAG EPI PRN ×2 (18:44→23:51)
--- NOTE | 2021-08-04 19:42 | Labor Progress Brief Note ---
Date of Service August 04, 2021 Subjective Got relief from re-dose for 1.5hrs but then starting to have significant pain again - has baseline pain but notices when ctx pain occurs separate from it Assessment & Plan (1) PROM (premature rupture of membranes): (2) 37 weeks gestation of : Plan: VSS Fetus cat 1 Labor - Good contraction pattern now and continuing to make change however is having a lot of pain again. Will discuss w/ anesthesia, will give dose of stadol for now until anesthesia arrives as she is so painful GBS neg epidural in place Admission and Anticipated Discharge Date Admission Date: August 03, 2021 Physical Exam Genitourinary: Manual OB Exam: + cervical dilation 4 cm, + cervical effacement 60% and + station -2 OB Exam Monitor Tracing: + external FHT monitor used, + intra-uterine pressure catheter used (q3) and + category I (140/mod/+accel/- decel) Results & Data ([facility]) Vital Signs (Past 12 Hours) Vital Signs Temp Pulse Resp BP Pulse Ox 08/04/21 19:32 117 H 143/70 H 08/04/21 19:31 118 H 99 08/04/21 19:26 117 H 98 08/04/21 19:21 130 H 99 08/04/21 19:17 114 H 140/70 08/04/21 19:16 113 H 99 08/04/21 19:11 114 H 99 08/04/21 19:06 122 H 98 08/04/21 19:03 108 H 141/70 H 08/04/21 19:01 110 H 98 08/04/21 19:00 18 08/04/21 18:56 103 H 98 08/04/21 18:51 108 H 98 08/04/21 18:46 100 H 129/61 98 08/04/21 18:45 18 08/04/21 18:41 107 H 99 08/04/21 18:36 101 H 98 08/04/21 18:31 108 H 127/60 96 08/04/21 18:30 18 08/04/21 18:26 98 H 97 08/04/21 18:21 99 H 97 08/04/21 18:17 98 H 120/57 L 08/04/21 18:16 100 H 97 08/04/21 18:15 18 08/04/21 18:11 103 H 98 08/04/21 18:06 100 H 99 08/04/21 18:02 100 H 120/59 L 08/04/21 18:01 101 H 99 08/04/21 18:00 18 08/04/21 17:56 100 H 98 08/04/21 17:51 102 H 99 08/04/21 17:46 103 H 99 08/04/21 17:45 108 H 18 110/55 L 08/04/21 17:43 108 H 117/56 L 08/04/21 17:41 107 H 112/58 L 99 08/04/21 17:39 106 H 103/58 L 08/04/21 17:37 107 H 114/59 L 08/04/21 17:36 107 H 97 08/04/21 17:35 113 H 103/57 L 08/04/21 17:33 100 H 117/58 L 08/04/21 17:31 110 H 98 08/04/21 17:30 18 08/04/21 17:26 110 H 97 08/04/21 17:21 118 H 97 08/04/21 17:18 116 H 141/67 H 08/04/21 17:16 116 H 98 08/04/21 17:15 18 08/04/21 17:13 112 H 92 08/04/21 17:11 108 H 97 08/04/21 17:06 110 H 97 08/04/21 17:02 107 H 118/58 L 08/04/21 17:01 106 H 96 08/04/21 17:00 98.4 F 18 08/04/21 16:56 103 H 96 08/04/21 16:51 100 H 96 08/04/21 16:49 99 H 120/58 L 08/04/21 16:46 100 H 96 08/04/21 16:41 102 H 97 08/04/21 16:36 108 H 97 08/04/21 16:32 105 H 135/71 08/04/21 16:31 105 H 99 08/04/21 16:30 18 08/04/21 16:26 105 H 98 08/04/21 16:21 104 H 98 08/04/21 16:18 109 H 142/72 H 08/04/21 16:16 110 H 97 08/04/21 16:15 18 08/04/21 16:11 115 H 97 08/04/21 16:06 107 H 98 08/04/21 16:02 108 H 124/63 08/04/21 16:01 110 H 97 08/04/21 16:00 18 08/04/21 15:56 105 H 96 08/04/21 15:51 105 H 97 08/04/21 15:47 101 H 123/63 08/04/21 15:46 103 H 98 08/04/21 15:45 18 08/04/21 15:41 103 H 97 08/04/21 15:36 103 H 98 08/04/21 15:32 104 H 122/61 08/04/21 15:31 100 H 97 08/04/21 15:30 18 08/04/21 15:26 101 H 97 08/04/21 15:21 107 H 97 08/04/21 15:17 105 H 125/60 08/04/21 15:16 102 H 97 08/04/21 15:15 18 08/04/21 15:11 108 H 98 08/04/21 15:06 106 H 98 08/04/21 15:02 110 H 122/61 08/04/21 15:01 108 H 98 08/04/21 15:00 98.2 F 18 08/04/21 14:56 98 H 96 08/04/21 14:51 98 H 97 08/04/21 14:47 100 H 113/55 L 08/04/21 14:46 98 H 97 08/04/21 14:45 18 08/04/21 14:41 98 H 97 08/04/21 14:36 98 H 97 08/04/21 14:32 105 H 113/56 L 08/04/21 14:31 97 H 97 08/04/21 14:26 95 H 97 08/04/21 14:21 106 H 97 08/04/21 14:17 93 H 112/58 L 08/04/21 14:16 107 H 97 08/04/21 14:11 99 H 96 08/04/21 14:06 98 H 96 08/04/21 14:02 105 H 109/54 L 08/04/21 14:01 105 H 97 08/04/21 13:56 99 H 97 08/04/21 13:51 93 H 98 08/04/21 13:48 97 H 112/53 L 08/04/21 13:46 98 H 96 08/04/21 13:41 96 H 96 08/04/21 13:36 93 H 97 08/04/21 13:32 90 117/57 L 08/04/21 13:31 92 H 98 08/04/21 13:26 95 H 99 08/04/21 13:21 98 H 98 08/04/21 13:17 98 H 126/64 08/04/21 13:16 100 H 99 08/04/21 13:11 102 H 98 08/04/21 13:06 100 H 97 08/04/21 13:02 102 H 125/63 08/04/21 13:01 99 H 98 08/04/21 13:00 98.2 F 18 08/04/21 12:56 102 H 99 08/04/21 12:51 97 H 97 08/04/21 12:47 95 H 126/59 L 08/04/21 12:46 93 H 99 08/04/21 12:45 18 08/04/21 12:41 92 H 97 08/04/21 12:38 95 H 94 08/04/21 12:36 93 H 95 08/04/21 12:32 86 126/58 L 08/04/21 12:31 93 H 97 08/04/21 12:30 18 08/04/21 12:27 93 H 94 08/04/21 12:26 95 H 94 08/04/21 12:21 94 H 95 08/04/21 12:17 90 118/58 L 08/04/21 12:16 92 H 95 08/04/21 12:15 18 08/04/21 12:11 92 H 96 08/04/21 12:06 88 96 08/04/21 12:03 86 122/56 L 08/04/21 12:01 90 96 08/04/21 12:00 18 08/04/21 11:56 91 H 95 08/04/21 11:51 90 97 08/04/21 11:47 90 123/58 L 08/04/21 11:46 90 97 08/04/21 11:45 18 08/04/21 11:41 92 H 97 08/04/21 11:36 85 99 08/04/21 11:32 96 H 125/60 08/04/21 11:31 92 H 99 08/04/21 11:30 86 18 122/60 08/04/21 11:28 86 117/58 L 08/04/21 11:26 93 H 114/55 L 99 08/04/21 11:24 85 113/54 L 08/04/21 11:22 98.2 F 88 105/50 L 08/04/21 11:21 89 98 08/04/21 11:20 88 114/56 L 08/04/21 11:16 85 86/54 L 100 08/04/21 11:15 18 08/04/21 11:14 84 95/61 L 08/04/21 11:11 87 104/55 L 100 08/04/21 11:06 91 H 99 08/04/21 11:01 90 100 08/04/21 11:00 18 08/04/21 10:56 97 H 144/74 H 100 08/04/21 10:51 100 H 100 08/04/21 10:50 94 H 137/70 08/04/21 10:46 95 H 100 08/04/21 10:45 96 H 18 136/76 08/04/21 10:43 93 H 135/72 08/04/21 10:41 97 H 137/73 100 08/04/21 10:39 91 H 140/79 08/04/21 10:37 93 H 135/79 08/04/21 10:36 97 H 100 08/04/21 10:35 103 H 135/80 08/04/21 10:33 93 H 137/83 08/04/21 10:31 96 H 133/92 100 08/04/21 10:30 18 08/04/21 10:29 90 136/93 08/04/21 10:26 86 100 08/04/21 10:21 91 H 100 08/04/21 10:17 100 H 156/78 H 08/04/21 10:16 87 100 08/04/21 10:15 93 H 18 139/66 08/04/21 10:13 97 H 145/66 H 08/04/21 10:11 98 H 154/73 H 100 08/04/21 10:09 109 H 140/68 08/04/21 10:06 84 100 08/04/21 10:05 86 126/66 08/04/21 10:01 88 100 08/04/21 10:00 84 123/56 L 08/04/21 09:58 86 128/62 08/04/21 09:56 82 134/64 100 08/04/21 09:54 83 133/60 08/04/21 09:52 83 135/63 08/04/21 09:51 83 137/66 100 08/04/21 09:39 89 98 08/04/21 09:34 87 98 08/04/21 09:29 84 98 08/04/21 09:24 86 98 08/04/21 09:19 87 98 08/04/21 09:14 80 100 08/04/21 08:00 92 H 139/73 Coding Level of Care Code None Diagnoses PROM (premature rupture of membranes) O42.90 37 weeks gestation of Z3A.37
--- NOTE | 2021-08-04 20:23 | Communication Note ---
Date of Service: August 04, 2021 pain has been very difficult to control since admission. epidural helped, but only for a short period of time. she did receive a bolus dose from the anesth esiologist at about 5pm, which improved her pain for about an hour. a sensory level was checked to temperature and she had adequate level to at least T6 bilaterally. The catheter has not moved since placement. The patient was bolused with 8cc of 0.25% bupivicane and 100mcg of fentanyl. Her pain was somewhat improved but still uncomfortable. Will continue pcea epidural
[2021-08-05] MEDS: LACTATED RINGER'S 1,000 ML IV PRN (00:30)
[2021-08-05] MEDS ORDERED: LIDOCAINE 1% LOCAL 20 ML VIAL ONE (01:34)
[2021-08-05] MEDS ORDERED: DIPHTHERIA/TETANUS/PERTUSSIS 0.5 ML SYR/VIAL IM ONE (03:01)
[2021-08-05] MEDS ORDERED: bisacodyL 10 MG SUPP PR PRN (03:01)
[2021-08-05] MEDS ORDERED: BENZOCAINE 20% AER SPR 82.5 GM CAN EXT PRN (03:01)
[2021-08-05] MEDS ORDERED: HYDROCORTISONE ACETATE 25 MG SUPP PR PRN (03:01)
[2021-08-05] MEDS ORDERED: OXYTOCIN 30 UNITS/500 ML BAG IV PRN (03:01)
[2021-08-05] MEDS: ceFAZolin 2000MG 2,000 MG/15 ML SYR IV SCH ×3 (03:15→19:24)
--- NOTE | 2021-08-05 03:17 | Delivery Summary ---
Vaginal Delivery Summary Date of Service August 05, 2021 Vaginal Delivery Summary and 2nd Degree LAC PREOPERATIVE DIAGNOSIS: 1. Single intrauterine at 37 4/7 wga 2. Prolonged premature rupture of membranes 3. Polyhydramnios 4. IVF with donor embryo 5. Advanced maternal age POSTOPERATIVE DIAGNOSIS: 1. Single intrauterine at 37 4/7 wga 2. Prolonged premature rupture of membranes 3. Polyhydramnios 4. IVF with donor embryo 5. Advanced maternal age 6. Retained placenta 7. Delivered PROCEDURE: 1. Normal spontaneous vaginal delivery with manual extraction of placenta SURGEON: Yaritza Panda MD ANESTHESIA: Epidural. ESTIMATED BLOOD LOSS: 300 mL FLUIDS: Continuous LR. URINE OUTPUT: None. COMPLICATIONS: None. CONDITION: Stable. INDICATIONS: 36 y/o G1 at 37 4/7 wga presented two days ago with premature rupture of membranes. On arrival was found to be closed and so started with PO cytotec. Due to frequency of contractions, only one dose was given and pitocin was started approximately 8 hours later. She did receive an epidural and pitocin was titrated to [address] however was only able to change to 2cm. Pitocin break was given and then restarted and she was able to progress to complete and desired to push. FINDINGS: A viable male infant, weight pending with Apgars of 8 and 9 at 1 and 5 minutes respectively. SPECIMEN: Cord blood, cord gases, placenta OPERATIVE REPORT: The patient progressed to 10 cm, 100% effaced and +2 station, pushed over intact perineum with anesthesia to deliver a viable male , weight and Apgars as above. Head of delivered in JOSEPHINE position. No nuchal cord was present. Body and shoulders were delivered without difficulty. was delivered to maternal abdomen and nursing staff. Delayed cord clamping was performed for 60 seconds. Cord was clamped and cut. Cord blood was obtained. Placenta was noted to not be progressing in delivery after 30 minutes despite fundal massage, gentle traction separately and so patient was counseled regarding manual removal. Placenta edge was identified within the uterus and able to shear away from the uterine wall easily and entirety of placenta was able to be manually extracted, confirmed by inspection following removal. Additional sweep of the uterus did not reveal any retained products. IV oxytocin and fundal massage were given for excellent hemostasis, IV antibiotics were ordered due to manual extraction and prolonged rupture. Vagina, cervix, perineum were inspected. A second degree laceration was noted and repaired using 3-0 vicryl. Hemostatic bilateral labial lacerations were noted and not needed to be repaired. Sponge and needle counts correct x2. No sponges were left behind. Mother and stable in immediate period. [facility] [place] Vaginal Delivery Charge Vaginal Delivery Codes: 13272 global code for the antepartum, delivery, and post- Delivery Type Details: and 2nd Degree LAC
[2021-08-05] MEDS: IBUPROFEN 600 MG TAB PO PRN ×4 (03:24→18:32)
[2021-08-05] MEDS: ACETAMINOPHEN 325 MG TAB PO PRN ×2 (03:25→17:36)
[2021-08-05 06:11] LABS: Base Excess Cord Venous Blood -11.1 mEq/L (-7.7-1.9); Cord Venous Blood HCO3 16 mmol/L (18.4-26.8); Cord Venous Blood PCO2 42 mmHg (30.4-57.2); Cord Venous Blood PO2 25 mmHg (14.1-43.3); Cord Venous Blood pH 7.21 (7.20-7.44); O2 Saturation Cord Venous Bld < 68.0 % (<68)
[2021-08-05] MEDS: PRENATAL VITAMIN 1 TAB PO SCH (08:55)
[2021-08-05] MEDS: DOCUSATE SODIUM 100 MG CAP PO SCH ×2 (08:55→20:50)
[2021-08-05] MEDS: FERROUS SULFATE 325 MG TAB PO SCH (08:55)
--- NOTE | 2021-08-05 09:26 | Anesthesia Procedure Note ---
Date of Service August 05, 2021 Anesthesia Post Epidural Note Vital Signs Vital Signs: Temp Pulse Resp BP Pulse Ox 37.1 C 94 H 18 132/69 94 08/05/21 04:49 08/05/21 04:52 08/05/21 04:49 08/05/21 04:52 08/05/21 04:51 Pain Intensity Lower Abdomen: Pain Intensity: 6 Vaginal: Pain Intensity: 6 Notes Mental Status: alert / awake / arousable Nausea / Vomiting: adequately controlled Pain: adequately controlled Airway Patency, RR, SpO2: stable & adequate BP & HR: stable & adequate Hydration State: stable & adequate Neuraxial Anesthesia: was administered and sensory block is resolving Anesthetic Complications: no major complications apparent and Pt Satisfied with anesthetic care Epidural: Removed without complications and With tip intact
[2021-08-05] MEDS: SERTRALINE HCL 50 MG TABLET PO SCH (11:17)
--- NOTE | 2021-08-06 05:29 | Obstetrical Progress Note ---
Date of Service <Lluvia Hennessy MD - Last Filed: 08/06/21 07:43> August 06, 2021 Assessment & Plan <Lluvia Hennessy MD - Last Filed: 08/06/21 07:43> (1) Vaginal delivery: 36 yo with IVF+ICSI with donor embryo now PPD1 from at 37wk4d, delivery complicated by prolonged ROM > 24 hrs + retained placenta requiring manual extraction. Ancef given for 24 hrs q8h after delivery -Continue routine care -Vitals reviewed- HDS, afebrile -Pain control with ibuprofen, acetaminophen PRN -Continue to monitor back pain- expect this is 2/2 epidural attempts and will resolve with time + continued ambulation. Unlikely to have primary neurologic etiology of back pain <Zoe Griffin DO - Last Filed: 08/06/21 08:13> (1) Vaginal delivery: Subjective <Lluvia Hennessy MD - Last Filed: 08/06/21 07:43> Ambulation: ambulating normally Voiding: no voiding problems Passing Gas:: Yes Diet Tolerance:: regular diet Lochia:: Small Feeding Type:: breast feeding Current Pain Level(1-10): 4 Pt doing well overall. Does report some moderate back pain around epidural site, also notes some tingling down her left leg but no weakness or numbness, bowel/bladder incontinence. Pain well controlled with medication. Review of Systems Denies fever/chills. Denies dyspnea, cough. Denies chest pain. Denies breast pain or discharge. Denies dysuria. Denies headache. Physical Exam <Lluvia Hennessy MD - Last Filed: 08/06/21 07:43> General: Alert, oriented, no acute distress Cardiac: Regular rate and rhythm, normal S1, S2. No murmurs appreciated. Respiratory: Clear to auscultation b/l with good air flow entry, symmetric chest rise and fall. No wheezes or crackles. No increased work of breathing or accessory muscle use Abdomen: Soft, nontender, nondistended. Fundus firm and palpable at 2 cm below umbilicus. No guarding or rebound. Skin: No rashes or lesions Extremities: Warm, dry, well-perfused with capillary refill <2s b/l. No lower extremity edema, erythema, swelling or calf tenderness b/l. Neuro: no focal motor or sensory deficits of b/l LE Results & Data ([facility]) <Lluvia Hennessy MD - Last Filed: 08/06/21 07:43> Vital Signs (Past 12 Hours) Vital Signs Temp Pulse Resp BP Pulse Ox 08/06/21 01:45 36.8 C 90 17 123/80 98 08/05/21 21:35 36.7 C 94 H 16 117/73 97 <Zoe Griffin DO - Last Filed: 08/06/21 08:13> Co-Signing Physician Notes Resident Physician Supervision Note: I interviewed and examined the patient. Discussed with Dr. Hennessy and agree with findings and plan as documented in the note. Any exceptions or clarifications are listed here: PPD#1 doing well. Routine care. Documented By: Zoe Griffin DO Resident Activity Tracking <Lluvia Hennessy MD - Last Filed: 08/06/21 07:43> Resident Involvement: Resident Care Provided Care Provided: OB Delivery
[2021-08-06] MEDS: IBUPROFEN 600 MG TAB PO PRN ×2 (07:43→21:52)
[2021-08-06] MEDS: DOCUSATE SODIUM 100 MG CAP PO SCH ×2 (07:45→21:53)
[2021-08-06] MEDS: FERROUS SULFATE 325 MG TAB PO SCH (07:45)
[2021-08-06] MEDS: PRENATAL VITAMIN 1 TAB PO SCH (07:45)
[2021-08-06] MEDS: SERTRALINE HCL 50 MG TABLET PO SCH (07:46)
[2021-08-06] MEDS ORDERED: ONDANSETRON 4 MG OD TAB PO PRN (12:38)
[2021-08-06] MEDS ORDERED: bisacodyL 5 MG TABEC PO SCH (20:00)
--- NOTE | 2021-08-07 05:50 | Obstetrical Progress Note ---
Date of Service <Lluvia Hennessy MD - Last Filed: 08/07/21 07:48> August 07, 2021 Assessment & Plan <Lluvia Hennessy MD - Last Filed: 08/07/21 07:48> (1) Vaginal delivery: 36 yo with IVF+ICSI with donor embryo now PPD2 from at 37wk4d, delivery complicated by prolonged ROM > 24 hrs + retained placenta requiring manual extraction. Ancef given for 24 hrs q8h after delivery -Discharge home today, instructions reviewed with patients -Vitals reviewed- HDS, afebrile -Pain control with ibuprofen, acetaminophen PRN -Pt will pursue outpatient physical therapy for her back pain -F/u in 6 weeks with OB <Eduardo Flannery MD - Last Filed: 08/07/21 08:14> (1) Vaginal delivery: Subjective <Lluvia Hennessy MD - Last Filed: 08/07/21 07:48> Ambulation: ambulating normally Voiding: no voiding problems Passing Gas:: Yes Diet Tolerance:: regular diet Lochia:: Small Feeding Type:: breast feeding Current Pain Level(1-10): 3 Pt doing well overall. Lower back pain is improving, still notes some numbness/tingling down her left leg but no weakness, bowel/bladder incontinence. Plans to get physical therapy for this outpatient. Pain well controlled with medication. Would like to go home today. Review of Systems Denies fever/chills. Denies dyspnea, cough. Denies chest pain. Denies breast pain or discharge. Denies dysuria. Denies headache. Physical Exam <Lluvia Hennessy MD - Last Filed: 08/07/21 07:48> General: Alert, oriented, no acute distress Cardiac: Regular rate and rhythm, normal S1, S2. No murmurs appreciated. Respiratory: Clear to auscultation b/l with good air flow entry, symmetric chest rise and fall. No wheezes or crackles. No increased work of breathing or accessory muscle use Abdomen: Soft, nontender, nondistended. Fundus firm and palpable at 2 cm below umbilicus. No guarding or rebound. Skin: No rashes or lesions Extremities: Warm, dry, well-perfused with capillary refill <2s b/l. Trace peripheral edema b/l, no erythema or calf tenderness b/l. Neuro: no focal motor or sensory deficits of b/l LE Results & Data ([facility]) <Lluvia Hennessy MD - Last Filed: 08/07/21 07:48> Vital Signs (Past 12 Hours) Vital Signs Temp Pulse Resp BP Pulse Ox 08/07/21 05:00 37.0 C 82 18 118/70 97 08/07/21 00:30 36.7 C 85 20 124/74 99 08/06/21 19:00 37.1 C 80 18 123/84 98 <Eduardo Flannery MD - Last Filed: 08/07/21 08:14> Co-Signing Physician Notes Patient seen and evaluated with resident and agree with the above findings and plan. Doing well. Stable for discharge. Resident Activity Tracking <Lluvia Hennessy MD - Last Filed: 08/07/21 07:48> Resident Involvement: Resident Care Provided Care Provided: OB Delivery
[2021-08-07] MEDS: SERTRALINE HCL 50 MG TABLET PO SCH (09:46)
[2021-08-07] MEDS: DOCUSATE SODIUM 100 MG CAP PO SCH (09:47)
[2021-08-07] MEDS: FERROUS SULFATE 325 MG TAB PO SCH (09:47)
[2021-08-07] MEDS: PRENATAL VITAMIN 1 TAB PO SCH (09:47)
[2021-08-07] MEDS: IBUPROFEN 600 MG TAB PO PRN (16:11)
== END 2021-08-07 18:26 | disposition home or self-care (01) | DRG 807 ==
LOC: OPB 06:53 → 4S1 06:57 → 4E2 08-05 06:06